=== PATIENT | female | born 1960 | race Caucasian/White ===

== ENCOUNTER → 2022-12-17 13:13 | Outpatient (CLI) | payer BC, SELFPAY ==
--- NOTE | ~2022-12-17 | MR_ITS ---
EXAMINATION: MR knee RT wo con DATE: 12/17/2022 14:07 INDICATION: Right knee pain TECHNIQUE: Magnetic resonance imaging (MRI) of the right knee was performed without intravenous contr ast. Sequences included coronal PD-weighted FSE, coronal PD-weighted FS FSE, sagittal T2-weighted FS E, sagittal PD-weighted FS FSE and axial PD weighted fat saturated FSE. COMPARISON: None. FINDINGS: Medial compartment: The proximal tear of the body and posterior horn of the medial meniscus. There is mild partial-thickn ess cartilage loss with scattered chondral surface regularity along the weightbearing medial femoral condyle with a couple small foci of subarticular cystlike changes at the medial rim of the anterior a nd posterior weightbearing medial femoral condyle. Partial-thickness chondral ulceration with mild un derlying subarticular edema-like signal change along the medial rim of the medial tibial plateau. Lateral compartment: Lateral meniscus is normal. Articular cartilage is normal. Patellofemoral compartment: Deep chondral fissuring at the medial patellar facet. Additional chondral ulceration and fissuring at the inferolateral aspect of the medial trochlea. Ligaments and tendons: Posterior cruciate ligament is normal. There are some lax appearing torn ligament tissue arising from the anterior tibial footplate of the anterior cruciate ligament consistent with likely partial tear. The more posterior portion of the tendon appears to remain intact. Mild thickening of the proximal m edial collateral ligament without surrounding edema consistent with likely sclerotic mild scarring re lated to chronic sprain. The fibular collateral ligament complex is normal. The extensor mechanism is normal. The visualized medial and lateral hamstring tendons as well as the iliotibial band are sean l. Fluid: Physiologic amount of fluid in the joint space. No loose osteochondral bodies identified. Very small Hurd's cyst. Osseous/other: Bone alignment is normal. No fracture or pathologic marrow replacing process. There is a 3.3 x 2.8 x 0.6 cm loculated T2 hyperintense prepatellar fluid collection consistent with bursitis. More caudally along the right anterior margin of the patellar tendon is a 4.2 x 2.1 x 3.5 cm subcutan eous lesion which is hyperintense on T1 and T1-weighted imaging and with decreased signal on the fat- saturated T2-weighted imaging. In the absence of intravenous contrast is unclear whether this is comp slava cystic or solid. IMPRESSION: 1. Partial tear of the anterior cruciate ligament. 2. Complex medial meniscal tear. 3. 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 4. Prepatellar bursitis with additional 4.2 x 2.1 x 3.5 cm subcutaneous lesion along the anterior and lateral margin of the patellar tendon, unclear whether solid or complex cystic. Consider further rashard luation with pre and postcontrast MRI with dedicated T1 and T1 fat saturated imaging. Definitive dete rmination may require biopsy. Reviewed, dictated and finalized at location A. IMPRESSION: 1. Partial tear of the anterior cruciate ligament. 2. Complex medial meniscal tear. 3. Mild osteoarthritis with small regions of high-grade chondromalacia in the m edial and patellofemoral compartments. 4. Prepatellar bursitis with additional 4.2 x 2.1 x 3.5 cm subcutaneous lesion along the anterior and lateral margin of the patellar tendon, unclear whether s olid or complex cystic. Consider further evaluation with pre and postcontrast M RI with dedicated T1 and T1 fat saturated imaging. Definitive determination may require biopsy.
== END ==
PROVIDERS: PCP Family Medicine; Visit Provider Specialist
DX: S83.511A Sprain of anterior cruciate ligament of right knee, initial encounter (principal); S83.231A Complex tear of medial meniscus, current injury, right knee, initial encounter; X58.XXXA Exposure to other specified factors, initial encounter; M17.11 Unilateral primary osteoarthritis, right knee; M70.41 Prepatellar bursitis, right knee
CPT/HCPCS: 73721

== ENCOUNTER 2023-11-19 15:33 | Outpatient (CLI) | payer MEDICARE, SELFPAY ==
--- NOTE | ~2023-11-19 | CT_ITS ---
CT abdomen pelvis wo con Ordering provider: Maya Ahn PA-C History: . R31.9 - Hematuria, unspecified . Comparison: None. Technique: CT abdomen without IV and without oral contrast. Findings: VISUALIZED LOWER CHEST: Normal. UPPER ABDOMINAL ORGANS: Liver: Fatty infiltration. Gallbladder: Normal. Spleen: Normal. Stomach/duodenum: Small sliding hiatus hernia. Pancreas: Normal. Adrenals: Normal. Kidneys: The left kidney pelvic stone measuring 8.3 mm. Urinary bladder: Normal. VISUALIZED BOWEL AND MESENTERY: Normal appendix. The bowel is otherwise normal. No free air or free f luid. No mesenteric lymphadenopathy. RETROPERITONEUM: Mild atheromatous disease of the abdominal aorta. No retroperitoneal lymphadenopathy . MUSCULOSKELETAL: The superficial soft tissues are normal. Age appropriate degenerative changes of the spine. IMPRESSION: Left renal pelvis stone with no significant hydronephrosis. Fat infiltration of the liver. Reviewed, dictated and finalized at location A.
== END 2023-11-19 15:34 ==
LOC: MICIMG 15:33
PROVIDERS: PCP Physician Assistant Medical; Visit Provider Physician Assistant Medical
DX: R31.9 Hematuria, unspecified (principal); K76.0 Fatty (change of) liver, not elsewhere classified; N20.0 Calculus of kidney
CPT/HCPCS: 74176

== ENCOUNTER 2023-12-26 14:15 | Outpatient (CLI) | payer MEDICARE, SELFPAY ==
--- NOTE | ~2023-12-26 | XR_ITS ---
Supine and upright views of the abdomen Clinical history: Kidney stones COMPARISON: 11/14/2023 Findings: Bowel gas pattern is nonspecific. No evidence for obstruction or free air. Possible tiny le ft lower pole renal stone. Osseous structures are intact. Impression: Possible tiny left lower pole renal stone. Reviewed, dictated and finalized at location . Impression: Possible tiny left lower pole renal stone.
--- NOTE | ~2023-12-26 | CT_ITS ---
EXAMINATION: CT abdomen pelvis wo con DATE: 12/26/2023 15:51 INDICATION: Blood in stool TECHNIQUE: Computed tomography (CT) of the abdomen and pelvis was performed without intravenous contr ast. Automated exposure control and iterative reconstruction technique were employed. The dose-length product was 290.72 mGy-cm. COMPARISON: 11/19/2023 FINDINGS: Visualized lower lungs are clear. Heart size is normal. No pericardial or pleural effusion. Diffuse h epatic steatosis. The gallbladder, spleen, pancreas, bilateral adrenal glands and right kidney are no rmal. The previously seen 8 mm stone at the left renal pelvis is no longer visualized. New 2-3 mm non obstructing stones or stone fragment at the lower pole of the left kidney. No ureteral stones or hydr onephrosis. Wall contrast material extensor the nonobstructed small bowel into the colon where it is mixed with stool in the proximal colon extending to the mid transverse colon. The more distal colon i s decompressed. There is mild stranding and hyperemia of the vasa recta at the splenic flexure of the colon extending distally along the descending colon which is new since the prior study and suspiciou s for a mild colitis. Bladder is normal. The uterus is not identified and has likely been surgically resected. No free intraperitoneal gas or fluid. No pathologically enlarged abdominal or pelvic lympha denopathy. Moderate to severe lumbar spondylosis. IMPRESSION: 1. Prior 8 mm stone at the left renal pelvis no longer visualized with new 2-3 mm stone or stone frag ment at the lower pole calyx suggesting interval lithotripsy. 2. Mild stranding and hyperemia to vasa recti at the splenic flexure and descending colon which is ne w since the prior study suspicious for mild colitis which could be infectious or inflammatory in etio logy. Reviewed, dictated and finalized at location A. IMPRESSION: 1. Prior 8 mm stone at the left renal pelvis no longer visualized with new 2-3 mm stone or stone fragment at the lower pole calyx suggesting interval lithotri psy. 2. Mild stranding and hyperemia to vasa recti at the splenic flexure and descen ding colon which is new since the prior study suspicious for mild colitis which could be infectious or inflammatory in etiology.
== END 2023-12-26 14:16 ==
LOC: MICIMG 14:17
PROVIDERS: PCP Physician Assistant Medical; Visit Provider Urology
DX: K92.1 Melena (principal)
CPT/HCPCS: 74018; 74176

== ENCOUNTER 2024-05-26 12:15 | Outpatient (CLI) | payer MEDICARE, SELFPAY ==
[2024-05-26 13:40] LABS: Basophils Percent Auto 0.5 % (0.2-1.2); Eosinophils Absolute Auto 0.1 K/mm3 (0-0.3); Eosinophils Percent Auto 1.8 % (0-4.4); Hematocrit 41.6 % (37.0-47.0); Hemoglobin 14.3 g/dL (12.0-15.0); Immature Granulocyte Absolute 0.02 K/mm3 (0.00-0.031); Immature Granulocyte Percent A 0.3 % (0-0.5); Lymphocytes Absolute Auto 1.91 K/mm3 (0.9-3.2); Lymphocytes Percent Auto 31.8 % (18.3-44.2); Mean Corpuscular HGB Conc 34.4 g/dl (32-36); Mean Corpuscular Hemoglobin 30.1 pg (26-34); Mean Corpuscular Volume 87.6 fl (80-100); Mean Platelet Volume 11.4 fl (7.4-10.4); Monocytes Absolute Auto 0.3 K/mm3 (0.1-0.6); Monocytes Percent Auto 5.5 % (2.6-8.5); Neutrophils Absolute Auto 3.6 K/mm3 (1.3-6.7); Neutrophils Percent Auto 60.1 % (45.5-73.1); Platelet Count Result 204 k/mm3 (150-375); Red Blood Count 4.75 M/mm3 (4.2-5.4); Red Cell Distribution Width 12.3 % (11.5-14.5)
[2024-05-26 13:58] LABS: Alanine Aminotransferase 37 U/L (6-35); Albumin Level 5.1 g/dL (3.5-5.1); Alkaline Phosphatase 65 U/L (38-126); Amylase 69 U/L (30-110); Anion Gap 9 mmol/L (4-12); Aspartate Amino Transferase 39 U/L (14-36); Bilirubin,Total 1.3 mg/dL (0.2-1.3); Blood Urea Nitrogen 13 mg/dL (7-17); Carbon Dioxide 26 mmol/L (22-30); Chloride 109 mmol/L (98-107); Estimated Glomerular Filt Rate > 60; Glucose 84 mg/dL (65-110); Lipase 72 U/L (23-300); Potassium 3.8 mmol/L (3.4-5.0); Sodium 144 mmol/L (137-145)
[2024-05-26 14:46] LABS: Iron 135 ug/dL (37-170)
[2024-05-26 14:56] LABS: Percent Iron Saturation 34 % (20-50)
== END 2024-05-26 12:16 | disposition home or self-care (01) ==
PROVIDERS: PCP Nurse Practitioner Family; Visit Provider Nurse Practitioner Family
DX: K92.1 Melena (principal)
CPT/HCPCS: 36415; 80048; 80076; 82150; 82728; 83540; 83550; 83690; 85025

== ENCOUNTER 2024-08-10 01:38 | Day surgery (SDC) | payer MEDICARE, SELFPAY ==
[2024-07-29 09:21] VITALS: BMI 24.0
[2024-08-10 12:43] VITALS: BP 155/83; PULSE 98; RESP 18; TEMP 36.3; O2SAT 99
[2024-08-10] MEDS: LACTATED RINGERS 1,000 ML 150 ML IV CONT (12:51)
--- NOTE | 2024-08-10 13:23 | WPDANESEPPF ---
Anes - Initial Pre Proc Eval Procedure: Operation Date: 08/10/24 14:00 Proposed Procedures p Colonoscopy - Francis Child MD Date/Time: 08/10/24 13:23 Surgeon: Francis Child MD Pre Op Diagnosis: Melena, Fam dx of neoplasm digestive organs Patient Data Age: 63 Gender: F Height: 1.5 m Weight: 54.1 kg Last Vital Signs Temp 36.3 C L 08/10/24 12:43 Pulse 98 08/10/24 12:43 Resp 18 08/10/24 12:43 BP 155/83 H 08/10/24 12:43 Pulse Ox 99 08/10/24 12:43 O2 Del Method Room Air 08/10/24 12:43 Allergies Allergy/AdvReac Type Severity Reaction Status Date / Time shellfish derived Allergy Severe Anaphylaxis Verified 08/10/24 12:42 Home Medications ?Medication ?Instructions ?Recorded ?Confirmed ?Type cetirizine 10 mg tablet (Zyrtec) See Rx Instructions PO DAILY PRN 04/05/22 08/10/24 History allergy symptoms cholecalciferol (vitamin D3) 50 50 mcg PO DAILY 04/05/22 08/10/24 History mcg (2,000 unit) capsule fish oil BYMOUTH 1400 mg 04/05/22 06/25/24 History folic acid 400 mcg tablet 0.4 mg PO DAILY 04/05/22 08/10/24 History aspirin 81 mg tablet,delayed 81 mg PO DAILY 02/14/23 08/10/24 History release (Adult Low Dose Aspirin) benazepril 20 mg tablet 20 mg PO DAILY 02/14/23 08/10/24 History cyanocobalamin (vitamin B-12) 1,000 mcg PO DAILY 02/15/23 08/10/24 History 1,000 mcg tablet amlodipine 5 mg tablet 5 mg PO DAILY 09/25/23 08/10/24 History simvastatin 20 mg tablet 20 mg PO QHS #90 tabs 05/18/24 08/10/24 Rx ezetimibe 10 mg tablet 10 mg PO DAILY #90 tabs 07/15/24 08/10/24 Rx montelukast 10 mg tablet 10 mg PO DAILY #90 tabs 07/15/24 08/10/24 Rx Patient hx anesthesia problems: none Family hx anesthesia problems: none Results Review: All pre-operative results and documents have been reviewed as part of the pre-operative evaluation. [facility] Past Medical History Medical History Fatty infiltration of liver (~12/2023) Mild transaminitis Spondylosis of lumbar spine Urolithiasis lithotripsy December 2023 Hematuria (~11/2023) Allergic rhinitis Dyslipidemia HTN (hypertension) Surgical History Surgical History History of knee surgery H/O mastoidectomy Social History Social History Smoking status: Never smoker Alcohol intake: current Alcohol use details: rarely Substance use: never Lack of Transportation: No Lack of Food: Never True Current Housing: I Have Housing Concerned About Future Housing: No Difficulty Paying Gas/Electric Bills: No Difficulty Paying for Meds: No Currently Unemployed: No Education: Trade/Vocational Certificate Difficulty w/ Childcare or Family Care: No Living arrangements: with family Occupation/Education: retired Gender identity (if verbalized by the patient): Female Anes - Eval Final PreProcedure Day of Procedure 08/10/24 13:23 Patient weight: normal Heart: regular rate and rhythm Lungs: clear to auscultation Airway: Mallampati scale class II Neurological: alert and oriented Last oral intake: >/= 8 hours ASA classification: II Emergent: no Anesthetic plan: proceed Anesthesia type and monitoring: general GIVS and standard monitoring Results Review: All pre-operative results and documents have been reviewed as part of the pre-operative evaluation. Informed Consent: The patient's anesthetic plan and its attendant risks and benefits were discussed with the patient/family/POA. Questions were solicited and answers provided to the satisfaction of the patient/family/POA.
--- NOTE | 2024-08-10 13:47 | PM.HPGS ---
History of Present Illness History of Present Illness Consent: Risks, benefits, and alternatives have been discussed and questions answered. Patient agrees to proceed with procedure. Chief complaint: Melena, Fam dx of neoplasm digestive organs Narrative: Arely De Paz is a 63 year old female with intermittent rectal bleeding, last colonoscopy 2019 Review of Systems Review of Systems: All systems reviewed & are unremarkable except as noted in HPI and below PMFSH Past Medical History Medical History Fatty infiltration of liver (~12/2023) Mild transaminitis Spondylosis of lumbar spine Urolithiasis lithotripsy December 2023 Hematuria (~11/2023) Allergic rhinitis Dyslipidemia HTN (hypertension) Surgical History Surgical History History of knee surgery H/O mastoidectomy Social History Social History Smoking status: Never smoker Alcohol intake: current Alcohol use details: rarely Substance use: never Lack of Transportation: No Lack of Food: Never True Current Housing: I Have Housing Concerned About Future Housing: No Difficulty Paying Gas/Electric Bills: No Difficulty Paying for Meds: No Currently Unemployed: No Education: Trade/Vocational Certificate Difficulty w/ Childcare or Family Care: No Living arrangements: with family Occupation/Education: retired Gender identity (if verbalized by the patient): Female Meds Home Medications and Allergies Home Medications ?Medication ?Instructions ?Recorded ?Confirmed ?Type cetirizine 10 mg tablet (Zyrtec) See Rx Instructions PO DAILY PRN 04/05/22 08/10/24 History allergy symptoms cholecalciferol (vitamin D3) 50 50 mcg PO DAILY 04/05/22 08/10/24 History mcg (2,000 unit) capsule fish oil BYMOUTH 1400 mg 04/05/22 06/25/24 History folic acid 400 mcg tablet 0.4 mg PO DAILY 04/05/22 08/10/24 History aspirin 81 mg tablet,delayed 81 mg PO DAILY 02/14/23 08/10/24 History release (Adult Low Dose Aspirin) benazepril 20 mg tablet 20 mg PO DAILY 02/14/23 08/10/24 History cyanocobalamin (vitamin B-12) 1,000 mcg PO DAILY 02/15/23 08/10/24 History 1,000 mcg tablet amlodipine 5 mg tablet 5 mg PO DAILY 09/25/23 08/10/24 History simvastatin 20 mg tablet 20 mg PO QHS #90 tabs 05/18/24 08/10/24 Rx ezetimibe 10 mg tablet 10 mg PO DAILY #90 tabs 07/15/24 08/10/24 Rx montelukast 10 mg tablet 10 mg PO DAILY #90 tabs 07/15/24 08/10/24 Rx Allergies Allergy/AdvReac Type Severity Reaction Status Date / Time shellfish derived Allergy Severe Anaphylaxis Verified 08/10/24 12:42 Vital Signs Vital Signs - 24 hr 08/10/24 12:43 Temperature 97.4 F L Pulse Rate 98 Respiratory Rate 18 Blood Pressure 155/83 H Pulse Oximetry 99 Oxygen Delivery Room Air Exam Const: General: comfortable and no acute distress HENMT: Face/Nose/Sinus: Normal nares present Eyes: General: appearance normal, both eyes and all related structures Neck: Neck: no JVD Resp: Auscultation: clear to auscultation bilaterally Cardio: Rate: regular rate Rhythm: regular rhythm GI: Inspection: non-distended GI Palp: Yes Soft to palpation Skin: General skin exam: normal color Neuro: Speech: normal speech Extrem: General: normal to inspection Psych: Mental Status: mental status grossly normal Assessment and Plan Assessment and plan (1) Hematochezia: Code(s): K92.1 - Melena Status: Acute Assessment and Plan: colonoscopy (2) Family history of colon cancer: Code(s): Z80.0 - Family history of malignant neoplasm of digestive organs Status: Acute
[2024-08-10 14:02] VITALS: BP 113/53; PULSE 92; RESP 20; O2SAT 98
[2024-08-10 14:12] VITALS: BP 98/77; PULSE 77; RESP 18; O2SAT 98
[2024-08-10 14:22] VITALS: BP 116/69; PULSE 77; RESP 19; O2SAT 98
== END 2024-08-10 14:32 | disposition home or self-care (01) ==
PROVIDERS: PCP Physician Assistant Medical; Referring Provider Nurse Practitioner Family; Visit Provider Internal Medicine Gastroenterology
PROC: 0DJD8ZZ Inspection of Lower Intestinal Tract, Via Natural or Artificial Opening Endoscopic (ICD-10-PCS; CPT 45378; principal; 2024-08-10 14:00)
DX: K92.1 Melena (principal); K64.8 Other hemorrhoids; Z80.0 Family history of malignant neoplasm of digestive organs
CPT/HCPCS: 45378; J2003; J2704; J7120

== ENCOUNTER 2025-01-05 10:00 | Outpatient (CLI) | payer MEDICARE, SELFPAY ==
--- NOTE | ~2025-01-05 | US_ITS ---
US retroperitoneal comp 01/05/2025 11:04 Procedure: Realtime transabdominal ultrasound of the kidneys and bladder. Indication: History of kidney stones Comparison: CT dated Findings: Renal echotexture is normal bilaterally without hydronephrosis, contour deforming mass. The re are echogenic foci in the lower pole of the left kidney, suspicious for renal stones. The right ki dney measures 11 cm and left kidney measures 10.7 cm. Bladder within normal limits. Impression: 1: Echogenic foci lower pole of the left kidney, suspicious for nonobstructing nephrolithiasis. Consi shiraz correlation with CT. Reviewed, dictated and finalized at location A. Impression: 1: Echogenic foci lower pole of the left kidney, suspicious for nonobstructing nephrolithiasis. Consider correlation with CT.
--- NOTE | ~2025-01-05 | XR_ITS ---
XR abdomen/kub 1V 01/05/2025 10:29 Indication: Kidney stone Procedure: KUB Comparison: 12/26/2023 Findings: Bowel gas pattern nonobstructive. No renal stones identified. Lung bases unremarkable. Ther e are pelvic phleboliths. Calcification overlying the right sacrum likely represents a phlebolith. Impression: 1: No acute abdominal abnormality. Reviewed, dictated and finalized at location A. Impression: 1: No acute abdominal abnormality.
== END 2025-01-05 10:01 | disposition home or self-care (01) ==
PROVIDERS: PCP Urology; Visit Provider Urology
DX: N20.0 Calculus of kidney (principal)
CPT/HCPCS: 74018; 76770

== ENCOUNTER 2025-03-25 14:00 | Outpatient (CLI) | payer MEDICARE, SELFPAY ==
--- OUTSIDE RECORDS SUMMARY | 2013-11-19 04:30 | XMS_ITS | Continuity of Care Document ---
Author Organization [employer] [facility] [place] Address [address] [facility] [address] [place] [address] Phone Care Team Providers Care Fuse Cutter Name Role Phone Danna OD OD, Ghanshyam Unavailable Unavailabl e Medications Medication Instructions Dosage Effective Dates (start - stop) Status Comments Zyrtec 10 mg tablet Take in the morning 4 - Active Accupril 40 mg tablet take 1 tablet (40MG) by oral route every day 40 MG - Active Zyrtec-D 5 mg-120 mg tablet,extended release QHS - Active Vytorin 10-20 10 mg-20 mg tablet take 1 tablet by oral route every day 1.00 tablet - Active Singulair 5 mg chewable tablet chew 2 tablet (10MG) by oral route every day in the evening 10 MG - Active ELESTAT 0.05 % Eye Drops instill 1 drop by ophthalmic route 2 times every day into both eyes - Active aspirin 81 mg tablet,delayed release take 1 tablet (81MG) by oral route every day 81 MG - Active Procedures Procedure Date Office/outpatient Visit, Est Special Eye Evaluation SCODI, Posterior Segment QuantifEye/Optomap Refraction Contact Lens Hydrophilic, Spherical Delivery Fee/S&H Eye Exam Established Pt Visual Field Examination(s) VEP Testing QuantifEye Office/outpatient Visit, Est SCODI, Posterior Segment Contact Lens Assessment QuantifEye/Optomap Refraction Office/outpatient Visit, Est Fundus Photography W/ Report Refraction QuantifEye Contact Lens Hydrophilic, Spherical Delivery Fee/S&H Contact Lens Assessment Contact Lens Hydrophilic, Spherical Delivery Fee/S&H Office/outpatient Visit, Est Fundus Photography W/ Report Contact Lens Assessment Contact Lens Hydrophilic, Spherical Delivery Fee/S&H QuantifEye Refraction Contact Lens Hydrophilic, Spherical Delivery Fee/S&H Eye Exam Established Pt Contact Lens Hydrophilic, Spherical Delivery Fee/S&H Contact Lens Check Office/outpatient Visit, Est Refraction Visual Field Examination(s) Fundus Photography W/ Report Contact Lens Assessment Eye Exam & Treatment Contact Lens Hydrophilic, Spherical Delivery Fee/S&H Office/outpatient Visit, Est Visual Field Examination(s) CL Replacement - [employer] Frq Rep Sph Ju Delivery Fee CL Replacement - [employer] Frq Rep Sph No v Delivery Fee No Charge Contact Lens Check Eye Exam Established Pt Contact Lens Fitting Office/outpatient Visit, Est QuantifEye/Optomap Post-op Follow-up Visit Post-op Follow-up Visit CK Enhancement Oct- Office/outpatient Visit, Est Office/outpatient Visit, Est Office/outpatient Visit, Est Office/outpatient Visit, Est Advance Directives Directive Yes / No Effective Date File Name Resuscitation Not Answered N/A N/A Life Support Not Answered N/A N/A Intubation Not Answered N/A N/A Antibiotics Not Answered N/A N/A IV Fluid Support Not Answered N/A N/A Tube Feed Not Answered N/A N/A Other Directive N/A N/A WARNING:The information contained in this section is historical and is provided for information only and does not constitute a legal document or any assurance that the information is still accurate. Please verify the information with the weber of the legal document before using it for clinical purposes. Encounters Encounter Description Practice Location Reason(s) For Visit Diagnoses Date Provider Providers Copied on Encounter Office[facility]pat ient [facility] [employer] [facility], [address], [place], [place], [address], [place] tel:[phone] [facility] CUPPING OF OPTIC DISCOPN ANGL W BORDERLN FIND Low Risk Karl- 2-201 4 Mulqueeny OD Ghanshyam. [address], [place], [address], [place]. tel:[phone] Referring Provider: Ghanshyam Clay OD P, [address] [place], [address]. tel:[phone] [facility], [address], [place], [place], [address], [place] tel:[phone] SEC [facility] Ball No Information 8-201 3 Mulqueeny OD Ghanshyam. [address], [place], [address], [place]. tel:[phone] Referring Provider: Ghanshyam Clay OD P, [address] [place], [address]. tel:[phone] ing Provider: Luther Low, [address] [facility], [place], [address]. [facility], [address], [place], [place], [address], [place] tel:[phone] [facility] No Information Jan-2 3-201 3 Mulqueeny OD Ghanshyam. [address] [facility], [place], [place], [address], [place]. tel:[phone] Referring Provider: Ghanshyam Clay OD P, [address] [facility], [place], [address]. tel:[phone] Office/outpat ient Visit, [facility], [address], [place], [place], [address], [place] tel:[phone] [facility] No Information Nov-1 - 3 Mulqueeny OD Ghanshyam. [address] [facility], [place], [address], [place]. tel:[phone] Referring Provider: Ghanshyam Clay OD P, [address] [facility], [place], [address]. tel:[phone] Office/outpat ient Visit, [facility] [place], [address], [place], [place], [address], [place] tel:[phone] [facility] No Information Nov-0 5- 2 Mulqueeny OD Ghanshyam. [address] [facility], [place], [place], [address], [place]. tel:[phone] Referring Provider: Ghanshyam Clay OD P, [address] [facility], [place], [address]. tel:[phone] [facility], [address], [place], [place], [address], [place] tel:[phone] [facility] No Information Apr-0 3-201 1 Mulqueeny OD Ghanshyam. [address] [facility], [place], [place], [address], [place]. tel:[phone] Referring Provider: Ghanshyam Clay OD P, [address] [facility], [place], [address]. tel:[phone] ing Provider: Ridge Holland, [address] [facility], [place], [address]. tel:[phone] Office/outpat ient Visit, Est [facility], [address] [place] [address] [address], [place], [place], [address], [place] tel:[phone] [facility] No Information Karl-0 6-201 1 Mulqueeny OD Ghanshyam. [address] [facility], [place], [place], [address], [place]. tel:[phone] Referring Provider: Ghanshyam Clay OD P, [address] [facility], [place], [address]. tel:[phone] [facility], [address] [facility], [place], [place], [address], [place] tel:[phone] [facility] Ball No Information Gerry-0 7-201 1 Mulqueeny OD Ghanshyam. [address] [facility], [place], [place], [address], [place]. tel:[phone] Referring Provider: Ghanshyam Clay OD P, [address] [facility], [place], [address]. tel:[phone] ing Provider: Ridge Holland, [address] [facility], [place], [address]. tel:[phone] [facility], [address], [place], [place], [address], [place] tel:[phone] [facility] Ball No Information Dec-0 7-201 0 Mulqueeny OD Ghanshyam. [address] [facility], [place], [place], [address], [place]. tel:[phone] Referring Provider: Ghanshyam Clay OD P, [address] [facility], [place], [address]. tel:[phone] [facility], [address], [place], [place], [address], [place] tel:[phone] [facility] No Information Aug-0 4-201 0 Mulqueeny OD Ghanshyam. [address] [facility], [place], [place], [address], [place]. tel:[phone] Referring Provider: Ghanshyam Clay OD P, [address] [facility], [place], [address]. tel:[phone] ing Provider: Ridge Holland, [address] [facility], [place], [address]. tel:[phone] [facility], [address], [place], [place], [address], [place] tel:[phone] [facility] No Information Mil-1 5-201 0 Mulqueeny OD Ghanshyam. [address], [place], [address], [place]. tel:[phone] Referring Provider: Ghanshyam Clay OD P, [address] [facility], [place], [address]. tel:[phone] Office/outpat ient Visit, Est [facility], [address], [place], [place], [address], [place] tel:[phone] [facility] No Information Karl-0 8-201 0 Mulqueeny OD Ghanshyam. [address] [facility], [place], [place], [address], [place]. tel:[phone] Referring Provider: Ghanshyam Clay OD P, [address] [place], [address]. tel:[phone] [facility], [address], [place], [place], [address], [place] tel:[phone] [facility] Ball No Information Mar-1 5-201 0 Mulqueeny OD Ghanshyam. [address] [facility] [place], [address], [place]. tel:[phone] Referring Provider: Ghanshyam Luzbrittney OD P, [address] [facility] [place], [address]. tel:[phone] [facility], [address], [place], [place], [address], [place] tel:[phone] [facility] Ball No Information Nov-1 7-200 9 Mulqueeny OD Ghanshyam. [address], [place], [address], [place]. tel:[phone] Office/outpat ient Visit, Est [facility], [address], [place], [place], [address], [place] tel:[phone] [facility] Ball No Information Karl-0 2-200 9 Mulqueeny OD Ghanshyam. [address], [place], [address], [place]. tel:[phone] Referring Provider: Ghanshyam Luzbrittney OD P, [address] [facility] [place], [address]. tel:[phone] [facility], [address], [place], [place], [address], [place] tel:[phone] [facility] Ball No Information Nov-2 4-200 8 Mulqueeny OD Ghanshyam. [address], [place], [address], [place]. tel:[phone] [facility], [address], [place], [place], [address], [place] tel:[phone] [facility] No Information Nov-0 6-200 8 Mulqueeny OD Ghanshyam. [address] [facility], [place], [address], [place]. tel:[phone] Referring Provider: Ghanshyam Clay OD P, [address] [facility], [place], [address]. tel:[phone] [facility], [address], [place], [place], [address], [place] tel:[phone] [facility] No Information Oct-2 0-200 8 Mulqueeny OD Ghanshyam. [address] [facility], [place], [place], [address], [place]. tel:[phone] Referring Provider: Ghanshyam Clay OD P, [address] [facility], [place], [address]. tel:[phone] Office/outpat ient Visit, Est [facility], [address], [place], [place], [address], [place] tel:[phone] [facility] No Information May-2 9-200 8 Mulqueeny OD Ghanshyam. [address] [facility], [place], [place], [address], [place]. tel:[phone] Referring Provider: Ghanshyam Clay OD P, [address] [facility], [place], [address]. tel:[phone] [facility], [address], [place], [place], [address], [place] tel:[phone] [facility] No Information Nov-2 7-200 7 Mulqueeny OD Ghanshyam. [address] [facility], [place], [address], [place]. tel:[phone] Referring Provider: Ghanshyam Clay OD P, [address] [facility], [place], [address]. tel:[phone] [facility], [address], [place], [place], [address], [place] tel:[phone] [facility] No Information Oct-1 6-200 7 Mulqueeny OD Ghanshyam. [address] [facility], [place], [place], [address], [place]. tel:[phone] Referring Provider: Ghanshyam Clay OD P, [address] [facility], [place], [address]. tel:[phone] [facility], [address] [facility] [address], [place], [place], [address], [place] tel:[phone] [facility] No Information Oct-1 0-200 7 [facility] [address] [place], [place], [address], . tel:[phone] Referring Provider: Ghanshyam Clay OD P, [address] [facility], [place], [address]. tel:[phone] [facility]pat [facility], [address], [place], [place], [address], [place] tel:[phone] [facility] No Information Sep-1 7-200 7 Mulqueeny OD Ghanshyam. [address], [place], [address], [place]. tel:[phone] Referring Provider: Ghanshyam Clay OD P, [address] [facility], [place], [address]. tel:[phone] Office/outpat ient Visit, Est [facility], [address], [place], [place], [address], [place] tel:[phone] [facility] Ball No Information 6200 7 Mulqueeny OD Ghanshyam. [address], [place], [address], [place]. tel:[phone] Office/outpat ient Visit, [facility], [address] [place] [address] [address], [place], [place], [address], [place] tel:[phone] [facility] No Information 0200 7 Mulqueeny OD Ghanshyam. [address], [place], [address], [place]. tel:[phone] Office/outpat ient Visit, [facility], [address], [place], [place], [address], [place] tel:[phone] [facility] No Information 2200 7 Mulqueeny OD Ghanshyam. [address], [place], [address], [place]. tel:[phone] Family History Family Member Type Diagnosis Age At Onset No Information Payers Payer name Insurance type Covered alliance party ID Authoriza timarian(s) [place] [id number] Social History Type Description Quantity Date Captured Comments Alcohol Use Details No Caffeine Use Details No Tobacco Use Status No Information Smoking Status Never smoker Sex Female Chief Complaint And Reason For Visit No Information Reason For Referral Reason For Referral No Information History Of Present Illness Encounter Date Complaint History Of Prese nt Illness No Information Functional Status Date Functional Assessmen t No Information Instructions Date Instruction Additional Infor aleksandr - Return in 1 year arie Clay O.D. for Complete Exam / Contacts. Related to Borderline OAG Pathological optic-d isc cupping Borderline OAG - pleased to find stable results OUpt will call if allergy symptoms worsenrx given for specspt did not wish to renew ctl rx today, pt will call when ready for ctl assessment Related to Borderline OAG Assessments Type Assessment Date assessment CUPPING OF OPTIC DISC 4 assessment OPN GHAZALA FIELD FIND Low Ris k Patient Care Teams Name Effective Dates (start - stop) Status Members No Information
--- OUTSIDE RECORDS SUMMARY | 2025-03-25 16:07 | XMS_ITS | Encounter Summary ---
Author Organization [facility] Address [address] [place] [address] Care Team Providers Care [employer] Name Role Phone Deonte Glez MD Primary Care Provider [phone] Encounter Details Date Type Department Care Team (Late st Contact Info) Description 11/14/2019 Lab Requisition [facility] [address] [place] [address] Social History Tobacco Use Types Packs/Day Years Used Date Smoking Tobacco: Never Smokeless Tobacco: Never Alcohol Use Standard Drinks/Week Comments Yes 0 (1 standard drink = 0.6 oz pur e alcohol) Comments Unknown Sex and Gender Information Value Date Recorded Sex Assigned at Female 12/18/2022 9:34 AM CDT 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 Gender Identity Female 12/18/2022 9:34 AM CDT Sexual Orientation Straight 12/18/2022 9: 34 AM CDT documented as of this encounter Plan of Treatment Not on file documented as of this encounter Procedures Procedure Name Priority Date/Time Associated Diagnosis Comments SARS-COV-2 (COVID-19) IN HOUSE Routine 11/13/2019 4:20 PM CDT documented in this encounter Results * SARS-COV-2 (COVID-19) IN HOUSE (11/13/2019 4:20 PM CDT) COVID-19 PCR Not detected Not detected, Invalid 11/14/2019 10:22 PM CDT [facility] Microbiology SPECIMEN FROM NASOPHARYNGEAL STRUCTURE / Unknown Collection / Unknown 11/13/2019 4:20 PM CDT 11/14/2019 11:17 AM CDT Narrative [facility] - 11/14/2019 10:22 PM CDT This Real Time RT-PCR assay was developed and its performance characteristics determined by [facility]. This test has been authorized by the Food and Drug administration (FDA)under an Emergency Use Authorization (EUA). This test has been validated in accordance with the FDA's guidance document Policy for Diagnostic Testing in Laboratories Certified to perform High Complexity Testing under CLIA prior to Emergency Use Authorization for Coronavirus Disease-2019 during the Public Health Emergency issued on August 08, 2019. FDA independent review of this validation is pending. This test is only authorized for the duration of time the declaration that circumstances exist justifying the authorization of emergency use of in vitro diagnostic tests for detection of SARS-CoV-2 virus and/or diagnosis of COVID-19 infection under section 564(b)(1) of the Act, 21 U.S.C 360bbb-3 (b)(1), unless the authorization is terminated or revoked sooner. us LAB - MICROBIOLOGY ORDERABLES Fi nal Result [facility] [address] [place], [place] [address], [facility] [phone] documented in this encounter Visit Diagnoses Not on filedocumented in this encounter Additional Health Concerns Infection Onset Date Last Indicated Resolved Time COVID-19 Under Investigation 11/14/2019 11/13/2019 11/14/2019 10:22 PM CDT documented as of this encounter Care Teams [employer] Relationship Specialty Start Date End Date Deonte Glez MD [address] [place] [id number] PCP - General 04/17/18 documented as of this encounter
--- OUTSIDE RECORDS SUMMARY | 2025-03-25 16:07 | XMS_ITS | Encounter Summary ---
Author Organization [facility] Address [address] [address] Care Team Providers Care Retort Unloader Name Role Phone Deonte Glez MD Primary Care Provider [phone] Encounter Details Date Type Department Care Team (Late st Contact Info) Description 11/13/2022 Lab Requisition [facility] [address] [facility] [facility] [place] [address] Roseline Warren DO [address] [facility] [address] [place] [address] Social History Tobacco Use Types Packs/Day Years Used Date Smoking Tobacco: Never Smokeless Tobacco: Never Alcohol Use Standard Drinks/Week Comments Yes 0 (1 standard drink = 0.6 oz pur e alcohol) Comments Unknown Sex and Gender Information Value Date Recorded Sex Assigned at Female 12/18/2022 9:34 AM CDT 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 Gender Identity Female 12/18/2022 9:34 AM CDT Sexual Orientation Straight 12/18/2022 9: 34 AM CDT documented as of this encounter Plan of Treatment Not on file documented as of this encounter Procedures Procedure Name Priority Date/Time Associated Diagnosis Comments DERMATOPATHOLOGY Routine 11/13/2022 2:19 PM CDT documented in this encounter Results * DERMATOPATHOLOGY (11/13/2022 2:19 PM CDT) Case Report Dermatopathology Report Case: [id number] Authorizing Provider: Roseline Warren DO Collected: 11/13/2022 02:19 PM Ordering Location: [facility] Derm[facility] Lab Received: 11/14/2022 01:04 PM Pathologist: Lencho Doan MD Specimen: Skin, left thigh 3 5:55 PM CDT DERMATOPATHOLOGY LABORATORY Final Diagnosis Specimen A. SKIN, left thigh: HYPERPLASTIC (HYPERTROPHIC) ACTINIC KERATOSIS WITH ASSOCIATED HUMAN PAPILLOMA VIRUS CHANGES (L57.0) 3 5:55 PM CDT DERMATOPATHOLOGY LABORATORY at 1755 CDT Clinical History R/O NMSC 3 5:55 PM CDT DERMATOPATHOLOGY LABORATORY Gross Description Specimen A: Received is one formalin filled container labeled with the patient's name and designated left thigh. The specimen consists of a shave biopsy measuring 6x7x1 mm. Jar 0. 3 5:55 PM CDT DERMATOPATHOLOGY LABORATORY Microscopic Description Specimen A. SKIN, left thigh: There is hyperkeratosis alternating with parakeratosis. There is epidermal hyperplasia with disorderly maturation of keratinocytes with nuclear pleomorphism confined to the lower half of the epidermis. 3 5:55 PM CDT DERMATOPATHOLOGY LABORATORY Disclaimer An external and internal positive and negative controls are appropriate for the histochemical, immunohistochemical and immunofluorescence stain(s) in this case (if any), except where stated explicitly. The performance characteristics of the stain(s) cited in this report were developed and its performance characteristic determined by the Dermatopathology Laboratory at [facility], directed by Dr. Aureliano Doan. These tests need not be, and therefore are not, approved by the [place] Food and Drug Administration. The tests are used for clinical purposes. Billing Codes Specimen Charges Stain Charges 16213 1 3 5:55 PM CDT DERMATOPATHOLOGY LABORATORY Embedded Images 3 5:55 PM CDT DERMATOPATHOLOGY LABORATORY Pathology/Cytolo gy TISSUE SPECIMEN FROM SKIN / Unknown 11/13/2022 2:19 PM CDT 11/14/2022 1:04 PM CDT us Roseline Warren DO LAB - PATHOLOGY/CYTOLOGY ORDERABLES Final Result DERMATOPATHOLOGY LABORATORY [facility] - Department of Dermatology [facility] Special[facility] Medicine [address] [place] [address], [address] [phone] documented in this encounter Visit Diagnoses Not on filedocumented in this encounter Care Teams Retort Unloader Relationship Specialty Start Date End Date Deonte Glez MD [address] [place] [id number] PCP - General 04/17/18 documented as of this encounter
--- OUTSIDE RECORDS SUMMARY | 2025-03-25 16:07 | XMS_ITS | Encounter Summary ---
Author Organization [facility] Address [address] [facility] [place] [address] Care Team Providers Care Player Manager Name Role Phone Deonte Glez MD Primary Care Provider [phone] Encounter Details Date Type Department Care Team (Late st Contact Info) Description 02/20/2024 Lab Requisition [facility] [address] [facility] [place] [address] Roseline Warren DO [address] [facility] [address] [place] [address] Social History Tobacco Use Types Packs/Day Years Used Date Smoking Tobacco: Never Smokeless Tobacco: Never Alcohol Use Standard Drinks/Week Comments Yes 0 (1 standard drink = 0.6 oz pur e alcohol) Comments Unknown Sex and Gender Information Value Date Recorded Sex Assigned at Female 12/18/2022 9:34 AM CDT 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 Gender Identity Female 12/18/2022 9:34 AM CDT Sexual Orientation Straight 12/18/2022 9: 34 AM CDT documented as of this encounter Plan of Treatment Not on file documented as of this encounter Procedures Procedure Name Priority Date/Time Associated Diagnosis Comments DERMATOPATHOLOGY Routine 02/20/2024 3:20 PM CDT documented in this encounter Results * DERMATOPATHOLOGY (02/20/2024 3:20 PM CDT) Case Report Dermatopathology Report Case: [id number] Authorizing Provider: Roseline Warren DO Collected: 02/20/2024 03:20 PM Ordering Location: [facility] - Received: 02/21/2024 04:31 PM DermPath Lab Pathologist: Elise Irby MD Specimens: A) - Skin, right medial calf sup B) - Skin, right medial calf inf C) - Skin, right ant LE 4:00 PM T DERMATOPATHOLOGY LABORATORY Final Diagnosis Specimen A. 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 SKIN, right medial calf inf: ACTINIC KERATOSIS, LICHENOID (L57.0) Specimen C. SKIN, right ant LE: SQUAMOUS CELL CARCINOMA, WELL DIFFERENTIATED (C44.722) 4:00 PM T DERMATOPATHOLOGY LABORATORY at 1600 CDT Clinical History A-C: R/O NMSC 4:00 PM T DERMATOPATHOLOGY LABORATORY Gross Description Specimen A: Received is one formalin filled container labeled with the patient's name and designated right medial calf sup. The specimen consists of a shave biopsy measuring 6x4x1 mm. Jar 0. Specimen B: Received is one formalin filled container labeled with the patient's name and designated right medial calf inf. The specimen consists of a shave biopsy measuring 6x5x1 mm. Jar 0. Specimen C: Received is one formalin filled container labeled with the patient's name and designated right ant LE. The specimen consists of a shave biopsy measuring 9x7x2 mm. Jar 0. 4:00 PM CDT DERMATOPATHOLOGY LABORATORY Microscopic Description Specimen A. SKIN, right medial calf sup: The epidermis shows parakeratosis, full thickness disorderly maturation of keratinocytes, mitoses at different levels, and dyskeratotic cells. There is a lymphohistiocytic infiltrate within the dermis. Additional deeper sections were obtained and reviewed. Specimen B. SKIN, right medial calf inf: There is focal parakeratosis. The lower half of the epidermis shows disorderly maturation of keratinocytes with nuclear pleomorphism. The dermis shows a band-like, chronic inflammatory infiltrate with occasional apoptotic keratinocytes and some basal vacuolar alteration. Specimen C. SKIN, right ant LE: Arising in the epidermis and extending into the dermis there are irregularly shaped aggregates of keratinocytes showing evidence of premature cornification. 4 4:00 PM CDT DERMATOPATHOLOGY LABORATORY Disclaimer An external and internal positive and negative controls are appropriate for the histochemical, immunohistochemical and immunofluorescence stain(s) in this case (if any), except where stated explicitly. The performance characteristics of the stain(s) cited in this report were developed and its performance characteristic determined by the Dermatopathology Laboratory at [facility], directed by Dr. Aureliano Doan. These tests need not be, and therefore are not, approved by the [place] Food and Drug Administration. The tests are used for clinical purposes. Billing Codes Specimen Charges Stain Charges 72063 02644 54841 1 1 1 4 4:00 PM CDT DERMATOPATHOLOGY LABORATORY Embedded Images 4 4:00 PM CDT DERMATOPATHOLOGY LABORATORY Pathology/Cytology TISSUE SPECIMEN FROM SKIN / Unknown 02/20/2024 3:20 PM CDT 02/21/2024 4:31 PM CDT Miscellaneous samples (specimen) TISSUE SPECIMEN FROM SKIN / Unknown 02/20/2024 3:20 PM CDT 02/21/2024 4:31 PM CDT Miscellaneous samples (specimen) TISSUE SPECIMEN FROM SKIN / Unknown 02/20/2024 3:20 PM CDT 02/21/2024 4:31 PM CDT us Roseline Warren DO LAB - PATHOLOGY/CYTOLOGY ORDERABLES Final Result DERMATOPATHOLOGY LABORATORY [facility] Department of Dermatology [facility] Medicine [address] [place] [address], [address] [phone] documented in this encounter Visit Diagnoses Not on filedocumented in this encounter Care Teams Player Manager Relationship Specialty Start Date End Date Deonte Glez MD [address] [place] [address] [place] [id number] PCP - General 04/17/18 documented as of this encounter
--- OUTSIDE RECORDS SUMMARY | 2025-03-25 16:07 | XMS_ITS | Clinical Summary ---
Author Organization [facility] Address [address] [place] [address] Care Team Providers Care Mechanical Commissioning Engineer Name Role Phone Deonte Glez MD Primary Care Provider [phone] Referral, Self Unavailable Unavailable Allergies Active Allergy Reactions Criticality Noted Date Comments Shellfish Containing Products Swelling Medium 2019 Medications quinapriL (ACCUPRIL) 10 mg tablet Take 10 mg by mouth daily 0 Active ezetimibe (ZETIA) 10 mg tablet Take 10 mg by mouth daily 0 Active simvastatin (ZOCOR) 20 mg tablet Take 20 mg by mouth nightly at bedtime. 0 Active montelukast (Singulair) 10 mg tablet Take 5 mg by mouth daily Active ciprofloxacin-d exAMETHasone (CIPRODEX) otic suspension Administer 4 drops into the left ear 2 (two) times a day 7.5 mL 0 Active ciprofloxacin-d exAMETHasone (CIPRODEX) otic suspension Administer 4 drops into the right ear 4 (four) times a day 7.5 mL 3 0 Active HYDROcodone-warner taminophen ([place]) 5-325 mg per tabletIndicatio ns:Pain Take 1 tablet by mouth every 6 (six) hours as needed for pain 15 tablet 0 Active estradioL (CLIMARA) 0.025 mg/24 hr AGNES 1 PA EXT TO THE SKIN 1 TIME WEEKLY 0 Active Active Problems Problem Noted Date Diagnosed Date Cervicalgia 11/21/2021 Sensation of fullness in ear 06/22/2020 Otorrhea of left ear 11/13/2019 Abscess of ear canal, left 11/05/2019 Surgical History Surgery Date Site/Laterality Comments SKIN CANCER EXCISION EAR SURGERY Medical History Medical History Date Comments Hypertension Seasonal allergies Social History Tobacco Use Types Packs/Day Years Used Date Smoking Tobacco: Never Assessed Comments Unknown Sex and Gender Information Value Date Recorded Sex Assigned at Not on file Legal Sex Female 3:36 PM CDT Gender Identity Female 11/12/2019 10:19 PM CDT Sexual Orientation Not on file Obstetrics History Last Filed Vital Signs Vital Sign Reading Time Taken Comments Blood Pressure - - Pulse - - Temperature - - Respiratory Rate - - Oxygen Saturation - - Inhaled Oxygen Concentration - - Weight 54.4 kg (120 lb) 11/21/2021 1:53 PM CDT Height - - Body Mass Index - - Plan of Treatment Not on file Insurance CHOICE [place] Care Teams Mechanical Commissioning Engineer Relationship Specialty Start Date End Date Deonte Glez MD [address] [place] [address] [phone] PCP - General Internal Medicine 11/03/19 Referral, Self Referring Physician Otolaryngology 12/16/19
--- OUTSIDE RECORDS SUMMARY | 2025-03-25 16:07 | XMS_ITS | Clinical Summary ---
Author Organization [facility] Address [address] [place] [address] Care Team Providers Care Bull Ladle Tender Name Role Phone Abdi Mcnally MD Unavailable [phone] Yris Desai PA-C Primary Care Provider [phone] Allergies Active Allergy Reactions Criticality Noted Date Comments Shellfish-Derived Products Throat swelling 04/11 Medications aspirin EC (ASPIRIN EC) 81 MG tablet Take 1 tablet (81 mg total) by mouth daily. Active folic acid 1 MG tablet Take 1 tablet (1 mg total) by mouth daily. Active cetirizine 10 MG tablet Take 0.5 tablets (5 mg total) by mouth nightly. Active fish oil 1000 MG Cap capsule Take 1,400 mg by mouth daily. Active Cholecalciferol (VITAMIN D3) 50 MCG (2000 UT) Tab Take by mouth daily. Active ezetimibe 10 MG tablet Take 1 tablet (10 mg total) by mouth nightly. Active simvastatin 20 MG tablet Take 1 tablet (20 mg total) by mouth nightly at bedtime. Active montelukast 5 MG chewable tablet Chew 1 tablet (5 mg total) by mouth nightly at bedtime. Active Cetirizine-Pseu doephedrine (ZYRTEC-D OR) Take 1 tablet by mouth daily. Active amLODIPine (NORVASC) 5 MG tablet Take 1 tablet (5 mg total) by mouth daily. 05/21/2023 Active benazepril (LOTENSIN) 20 MG tablet Take 1 tablet (20 mg total) by mouth daily. 04/29/2023 Active tamsulosin (FLOMAX) 0.4 MG Cap Take 1 capsule (0.4 mg total) by mouth nightly at bedtime. 30 capsule 12/17/2023 Active HYDROcodone-warner taminophen (NORCO) 5-325 MG tabletIndicatio ns:Acute Pain < 7 Day Supply Take 1 tablet by mouth every 6 (six) hours as needed. Indications: Acute Pain < 7 Day Supply 15 tablet 12/17/2023 Active Active Problems No known active problems Family History Medical History Relation Comments Breast Cancer Neg Hx Social History Tobacco Use Types Packs/Day Years Used Date Smoking Tobacco: Never Smokeless Tobacco: Never Alcohol Use Standard Drinks/Week Comments Never 0 (1 standard drink = 0.6 oz pur e alcohol) Humiliation, Afraid, Rape, and Kick questionnair e Answer Date Recorded Within the last year, have y ou been afraid of your partner or ex-partner? Patient declined 05/03/2020 Within the last year, have y ou been humiliated or emotionally abused in other ways by your partner or ex-partner? Patient declined 05/03/2020 Within the last year, have y ou been kicked, hit, slapped, or otherwise physically hurt by your partner or ex-partner? Patient declined 05/03/2020 Within the last year, have y ou been raped or forced to have any kind of sexual activity by your partner or ex-partner? Patient declined 05/03/2020 Social Connection and Isolation Panel Answer Date Recorded In a typical week, how many times do you talk on the phone with family, friends, or neighbors? Patient declined 05/03/2020 How often do you get togethe r with friends or relatives? Patient declined 05/03/2020 How often do you attend advent or lutheran serv ices? Patient declined 05/03/2020 Do you belong to any clubs o r organizations such as advent groups, unions, fraternal or athletic groups, or school groups? Patient declined 05/03/2020 How often do you attend meet ings of the clubs or organizations you belong to? Patient declined 05/03/2020 Are you , , di vorced, , never , or living with a partner? Patient declined 05/03/2020 AUDIT-C Answer Date Recorded Q1: How often do you have a drink containing alc ohol? Never 05/03/2020 Average Number of Drinks Not on file 020 Frequency of Binge Drinking Not on file 04/11 Overall Financial Resource Strain (CARDIA) Answe r Date Recorded How hard is it for you to pa y for the very basics like food, housing, medical care, and heating? Not hard at all 05/03/2020 [facility] - Occupational Stress Questionnaire Answer Date Recorded Do you feel stress - tense, restless, nervous, or anxious, or unable to sleep at night because your mind is troubled all the time - these days? Not at all 05/03/2020 Exercise Vital Sign Answer Date Recorde d On average, how many days pe r week do you engage in moderate to strenuous exercise (like a brisk walk)? 7 days 05/03/2020 On average, how many minutes do you engage in exercise at this level? 90 min 05/03/2020 Hunger Vital Sign Answer Date Recorded Within the past 12 months, y ou worried that your food would run out before you got the money to buy more. Never true 05/03/20 20 Within the past 12 months, t he food you bought just didn't last and you didn't have money to get more. Never true 05/03/2020 PRAPARE - Transportation Answer Date Re corded In the past 12 months, has l ack of transportation kept you from medical appointments or from getting medications? No 04/11 In the past 12 months, has l ack of transportation kept you from meetings, work, or from getting things needed for daily living? 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 TEACHER Sexual Orientation Straight 07/19/2021 10 :03 AM HIGH SCHOOL BAND TEACHER Last Filed Vital Signs Vital Sign Reading Time Taken Comments Blood Pressure 122/72 12/17/2023 9:50 AM CDT Pulse 70 12/17/2023 9:50 AM CDT Temperature 36.1 C (97 F) 12/17/2023 9:50 AM CDT Respiratory Rate 16 12/17/2023 9:50 AM CDT Oxygen Saturation 100% 12/17/2023 9:50 AM CDT Inhaled Oxygen Concentration - - Weight 50.8 kg (111 lb 15.9 oz) 12/17/2023 6:15 AM CDT Height 151.1 cm (4' 11.5) 12/17/2023 6:15 AM CD T Body Mass Index 22.24 12/17/2023 6:15 AM CDT Plan of Treatment Health Maintenance Due Date Last Done Comments Hepatitis C 1976 DTaP, Tdap and Td Vaccines (1 - Tdap) 1977 Pneumococcal Vaccine: 50+ Years (1 of 1 - PCV) 2008 Annual Medicare Wellness Visit 11/09/2023 PHQ-2 (Physician [place]) 06/10/2024 COVID-19 Vaccine ( season) 2025 05/16/2021, 09/27/2020, 09/08/2020 Influenza Adult (#1) 2025 03/25/2020, 05/11/2019, 05/09/2018, Additional history exists Mammogram Screening 10/13/2026 10/13/2024, 07/29/2023, 07/25/2022, Additional history exists Colorectal Cancer Screening Colonoscopy (10 Years) 05/13/2030 05/13/2020 RSV Immunization or 60+ Years (1 - 1-dose 75+ series) 2033 Zoster Vaccines Completed 11/21/2017, 09/06/2017 Dexa Scan (General) Completed 07/29/2023 Meningococcal B Vaccine Aged Out No l onger eligible based on patient's age to complete this topic Meningococcal Vaccine Aged Out No marcia shagufta eligible based on patient's age to complete this topic RSV Immunizations Under 20 Months Aged Out No longer eligible based on patient's age to complete this topic Procedures Procedure Name Priority Date/Time Associated Diagnosis Comments MG SCREENING W VICKI ADINA DIGI Routine 10/13/2024 10:01 AM CDT Encounter for screening mammogram for malignant neoplasm of breast BONE DENSITY/DEXA Routine 07/29/2023 9:0 6 AM HIGH SCHOOL BAND TEACHER Post-menopausal from Last 3 Months or Most Recently Relevant to Health Maintenance Results * MG SCREENING W VICKI ADINA DIGI (10/13/2024 10:01 AM CDT) Anatomical Region Laterality Modality Breast Bilateral Mammography 10/13/2024 1:30 PM CDT Impressions 10/13/2024 1:48 PM CDT ===== IMPRESSION: ===== 1. Stable mammographic appearance with no new findings to suggest malignancy in either breast. Assessment: ACR BI-RADS 1 - NEGATIVE Recommendation: 1:Routine Screening Bilateral Comments: Ordered By: YRIS DESAI Interpreted By: Jerardo Kemp, 10/13/2024 1:30 PM Narrative 10/13/2024 1:48 PM CDT [id number] [place] [address] EXAMINATION: Digital bilateral screening mammogram with 3-D tomosynthesis EXAM DATE/TIME: 10/13/2024 9:06 AM REASON FOR EXAM: YEARLY COMPARISON: 07/29/2023.. 07/25/2022 Technique: Digital screening mammography of both breasts was performed in addition to 3-D Tomosynthesis technique. This study was read with the assistance of a computer-aided detection system. Tissue density: There are scattered areas of fibroglandular density. Findings: There is no new focal asymmetry, dominant mass lesion, area of skin thickening, or cluster of suspicious appearing calcifications in either breast to suggest malignancy. us Yris Desai PA-C MAMMO Final Resu lt * BONE DENSITY/DEXA (07/29/2023 9:06 AM HIGH SCHOOL BAND TEACHER) Anatomical Region Laterality Modality Bone Bone Density 07/29/2023 9:03 AM HIGH SCHOOL BAND TEACHER Impressions 07/29/2023 9:14 AM HIGH SCHOOL BAND TEACHER IMPRESSION: WHO Classification: Osteoporosis. RECOMMENDATIONS: All patients should ensure an adequate intake of dietary calcium and vitamin D. The NOF recommend adults under the age of 50 need 1000 mg of calcium and 400-800 IU of vitamin D daily. Effective therapy for the prevention and treatment of osteoporosis include bisphosphonates. FOLLOW-UP: People with diagnosed cases of osteoporosis or at high risk for fracture should have regular bone mineral density test. For patients eligible for Medicare, routine testing is allowed once every 2 years. Testing frequency can be increased to one year for patients who have rapidly progressing disease, those who are receiving or discontinuing medical therapy to restore bone mass, or have additional risk factors. Ordered By: JANE VELEZ Interpreted By: Jeremi Pino, 07/29/2023 9:03 AM Narrative 07/29/2023 9:14 AM HIGH SCHOOL BAND TEACHER EXAMINATION: BONE DENSITY/DEXA INDICATIONS: Asymptomatic menopausal state COMPARISON: None TECHNIQUE: DEXA bone mineral density evaluation was performed in the AP projection over the lumbar spine and both hips utilizing standard imaging techniques. FINDINGS: The BMD measured at the AP spine L1-L4 is 0.965 g/cm? with a T-score of -0.7. The BMD measured at the left femoral neck is 0.582 g/cm? with a T-score of -2.4. The BMD measured at the left hip is 0.845 g/cm? with a T-score of -0.8. The BMD measured at the right femoral neck is 0.542 g/cm? with a T-score of - 2.8. The BMD measured at the right hip is 0.811 g/cm? with a T-score of -1.1. FRAX 10-year fracture risk: N/A: Right femoral neck T score is below -2.5. Procedure Note Jeremi Pino MD - 07/29/2023 EXAMINATION: BONE DENSITY/DEXA INDICATIONS: Asymptomatic menopausal state COMPARISON: None TECHNIQUE: DEXA bone mineral density evaluation was performed in the APprojection over the lumbar spine and both hips utilizing standard imagingtechniques. FINDINGS: The BMD measured at the AP spine L1-L4 is 0.965 g/cm? with a T-score of-0.7. The BMD measured at the left femoral neck is 0.582 g/cm? with a T-score of-2.4. The BMD measured at the left hip is 0.845 g/cm? with a T-score of -0.8. The BMD measured at the right femoral neck is 0.542 g/cm? with a T-scoreof -2.8. The BMD measured at the right hip is 0.811 g/cm? with a T-score of -1.1. FRAX 10-year fracture risk: N/A: Right femoral neck T score is below -2.5. IMPRESSION: WHO Classification: Osteoporosis. RECOMMENDATIONS: All patients should ensure an adequate intake of dietary calcium andvitamin D. The NOF recommend adults under the age of 50 need 1000 mg ofcalcium and 400-800 IU of vitamin D daily. Effective therapy for theprevention and treatment of osteoporosis include bisphosphonates. FOLLOW-UP: People with diagnosed cases of osteoporosis or at high risk for fractureshould have regular bone mineral density test. For patients eligible forMedicare, routine testing is allowed once every 2 years. Testing frequencycan be increased to one year for patients who have rapidly progressingdisease, those who are receiving or discontinuing medical therapy torestore bone mass, or have additional risk factors. Ordered By: JANE VELEZ Interpreted By: Jeremi Pino, 07/29/2023 9:03 AM Jane Velez CN DEXA Final Result from Last 3 Months or Most Recently Relevant to Health Maintenance Insurance [employer] MEDICARE Care Teams Bull Ladle Tender Relationship Specialty Start Date End Date Yris Desai PA-C [address] [place] [address] [address] [place] [address] PCP - General PHYSICIAN PSYCHOLOGICAL TESTS SALES AGENT 12/10/23 Abdi Mcnally MD [address] [place] [address] CARDIOVASCULAR DISEASE 12/10/23
--- OUTSIDE RECORDS SUMMARY | 2025-03-25 16:07 | XMS_ITS | Encounter Summary ---
Author Organization [facility] Address [address] [facility] [place] [address] Care Team Providers Care Assistant Food Service Director Name Role Phone Deonte Glez MD Primary Care Provider [phone] Encounter Details Date Type Department Care Team (Late st Contact Info) Description 10/08/2018 Lab Requisition [facility] Care DermPath Lab [address] [facility], [facility] [place] [address] Kenisha Carballo MD [address] [facility] 3 [place] [address] Social History Tobacco Use Types Packs/Day Years Used Date Smoking Tobacco: Never Smokeless Tobacco: Never Alcohol Use Standard Drinks/Week Comments Yes 0 (1 standard drink = 0.6 oz pur e alcohol) Comments Unknown Sex and Gender Information Value Date Recorded Sex Assigned at Female 12/18/2022 9:34 AM CDT 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 Gender Identity Female 12/18/2022 9:34 AM CDT Sexual Orientation Straight 12/18/2022 9: 34 AM CDT documented as of this encounter Plan of Treatment Not on file documented as of this encounter Procedures Procedure Name Priority Date/Time Associated Diagnosis Comments DERMATOPATHOLOGY Routine 10/07/2018 12:0 0 AM CDT documented in this encounter Results * DERMATOPATHOLOGY (10/07/2018 12:00 AM CDT) Case Report Dermatopathology Report Case: [id number] Authorizing Provider: Kenisha Carballo MD Collected: 10/07/2018 12:00 AM Pathologist: Lencho Doan MD Received: 10/08/2018 11:32 AM Specimen: Skin, right neck 2:28 PM CDT DERMATOPATHOLOGY LABORATORY Final Diagnosis Specimen A. SKIN, right neck: BASAL CELL CARCINOMA, NODULAR TYPE (C44.41) PRESENT AT MARGIN 2:28 PM CDT DERMATOPATHOLOGY LABORATORY at 1427 CDT Clinical History R/O BCC, growing, non-healing. 2:28 PM CDT DERMATOPATHOLOGY LABORATORY Gross Description Specimen A: Received is one formalin filled container labeled with the patient's name and designated right neck. The specimen consists of a shave measuring [id number]. Jar 0. 2:28 PM CDT DERMATOPATHOLOGY LABORATORY Microscopic Description Specimen A. SKIN, right neck: Within the dermis there are aggregates of basaloid cells with a high nuclear to cytoplasmic ratio and peripheral palisading. This lesion is present at the margin of the specimen. 2:28 PM CDT DERMATOPATHOLOGY LABORATORY Disclaimer An external and internal positive and negative controls are appropriate for the histochemical, immunohistochemical and immunofluorescence stain(s) in this case (if any), except where stated explicitly. The performance characteristics of the stain(s) cited in this report were developed and its performance characteristic determined by the Dermatopathology Laboratory at [facility], directed by Dr. Aureliano Doan. These tests need not be, and therefore are not, approved by the [place] Food and Drug Administration. The tests are used for clinical purposes. Billing Codes Specimen Charges Stain Charges 18076 1 2:28 PM CDT DERMATOPATHOLOGY LABORATORY Embedded Images 2:28 PM CDT DERMATOPATHOLOGY LABORATORY Pathology/Cytolog y TISSUE SPECIMEN FROM SKIN / Unknown 10/07/2018 10/08/2018 11:32 AM CDT us Kenisha Carballo MD LAB - PATHOLOGY/CYTOLOGY OR DERABLES Final Result DERMATOPATHOLOGY LABORATORY [facility] - Department of Dermatology [facility], 5th Floor Lab [address] [phone] documented in this encounter Visit Diagnoses Not on filedocumented in this encounter Additional Health Concerns Infection Onset Date Last Indicated Resolved Time COVID-19 Under Investigation 11/14/2019 11/13/2019 11/14/2019 10:22 PM CDT documented as of this encounter Care Teams Assistant Food Service Director Relationship Specialty Start Date End Date Deonte Glez MD [address] [place] [address] PCP - General 04/17/18 documented as of this encounter
--- OUTSIDE RECORDS SUMMARY | 2025-03-25 16:07 | XMS_ITS | Encounter Summary ---
Author Organization [facility] Address [address] [place] [address] Care Team Providers Care Water Hauler Name Role Phone Deonte Glez MD Primary Care Provider [phone] Encounter Details Date Type Department Care Team (Late st Contact Info) Description 03/18/2024 Lab Requisition [facility] - DermPath Lab [address] [facility], [place] [address] Roseline Warren DO [address] [facility] 3 [place] [address] Social History Tobacco Use Types Packs/Day Years Used Date Smoking Tobacco: Never Smokeless Tobacco: Never Alcohol Use Standard Drinks/Week Comments Yes 0 (1 standard drink = 0.6 oz pur e alcohol) Comments Unknown Sex and Gender Information Value Date Recorded Sex Assigned at Female 12/18/2022 9:34 AM CDT Legal Sex Female 6:22 PM MANAGER RESORT Gender Identity Female 12/18/2022 9:34 AM CDT Sexual Orientation Straight 12/18/2022 9: 34 AM CDT documented as of this encounter Plan of Treatment Not on file documented as of this encounter Procedures Procedure Name Priority Date/Time Associated Diagnosis Comments DERMATOPATHOLOGY Routine 03/18/2024 3:45 PM CDT documented in this encounter Results * DERMATOPATHOLOGY (03/18/2024 3:45 PM CDT) Case Report Dermatopathology Report Case: [id number] Authorizing Provider: Roseline Warren DO Collected: 03/18/2024 03:45 PM Ordering Location: [facility] - Received: 03/19/2024 12:04 PM DermPath Lab Pathologist: Elise Irby MD Specimen: Skin, right med calf superior 12:59 PM CDT DERMATOPATHOLOGY LABORATORY Final Diagnosis Specimen A. SKIN, right med calf superior: DERMAL SCAR RESIDUAL SQUAMOUS CELL CARCINOMA NOT IDENTIFIED (L90.5) 12:59 PM CDT DERMATOPATHOLOGY LABORATORY at 1258 CDT Clinical History Bx Proven SCCIS 12:59 PM CDT DERMATOPATHOLOGY LABORATORY Gross Description Specimen A: Received is one formalin filled container labeled with the patient's name and designated right med calf superior. The specimen consists of a non-oriented ellipse of skin measuring 15a91a0 mm. The epidermal surface is unremarkable. The margin is inked green. The 12 o'clock and 6 o'clock tips are submitted in cassette 1. The remainder of the ellipse is serially sectioned and submitted in cassette 2-3. Jar 0. 12:59 PM CDT DERMATOPATHOLOGY LABORATORY Microscopic Description Specimen A. SKIN, right med calf superior: There are fibroblasts and collagen bundles oriented parallel to the skin surface. There are elongated blood vessels, some of which are oriented perpendicular to the skin surface. No residual squamous cell carcinoma is identified. 12:59 PM CDT DERMATOPATHOLOGY LABORATORY Disclaimer An external and internal positive and negative controls are appropriate for the histochemical, immunohistochemical and immunofluorescence stain(s) in this case (if any), except where stated explicitly. The performance characteristics of the stain(s) cited in this report were developed and its performance characteristic determined by the Dermatopathology Laboratory at [facility], directed by Dr. Aureliano Doan. These tests need not be, and therefore are not, approved by the [place] Food and Drug Administration. The tests are used for clinical purposes. Billing Codes Specimen Charges Stain Charges 49704 1 12:59 PM CDT DERMATOPATHOLOGY LABORATORY Embedded Images 12:59 PM CDT DERMATOPATHOLOGY LABORATORY Pathology/Cytolo gy TISSUE SPECIMEN FROM SKIN / Unknown 03/18/2024 3:45 PM CDT 03/19/2024 12:04 PM CDT us Roseline Warren DO LAB - PATHOLOGY/CYTOLOGY ORDERABLES Final Result DERMATOPATHOLOGY LABORATORY [facility] - Department of Dermatology [address], [address] [phone] documented in this encounter Visit Diagnoses Not on filedocumented in this encounter Care Teams Water Hauler Relationship Specialty Start Date End Date Deonte Glez MD [address] [place] [address] PCP - General 04/17/18 documented as of this encounter
--- OUTSIDE RECORDS SUMMARY | 2025-03-25 16:07 | XMS_ITS | Encounter Summary ---
Author Organization [facility] Address [address] [place] [address] Care Team Providers Care Retail Service Technician Name Role Phone Deonte Glez MD Primary Care Provider [phone] Encounter Details Date Type Department Care Team (Late st Contact Info) Description 03/25/2018 Lab Requisition [facility] Care DermPath Lab [address] [facility], [place] [address] Kenisha Carballo MD [address] [facility] 3 [place] [address] Social History Tobacco Use Types Packs/Day Years Used Date Smoking Tobacco: Never Assessed Comments Unknown Sex and Gender Information Value Date Recorded Sex Assigned at Female 12/18/2022 9:34 AM CDT Legal Sex Female 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 Gender Identity Female 12/18/2022 9:34 AM CDT Sexual Orientation Straight 12/18/2022 9: 34 AM CDT documented as of this encounter Plan of Treatment Not on file documented as of this encounter Procedures Procedure Name Priority Date/Time Associated Diagnosis Comments DERMATOPATH TECHNICAL REPORT Routine 03/24/2018 12:00 AM CDT documented in this encounter Results * DERMATOPATH TECHNICAL REPORT (03/24/2018 12:00 AM CDT) Case Report Dermatopathology Report Case: [id number] Authorizing Provider: Kenisha Carballo MD Collected: 03/24/2018 12:00 AM Pathologist: Lencho Doan MD Received: 03/25/2018 07:15 AM Specimen: Skin, right ala 12:12 PM CDT DERMATOPATHOLOGY LABORATORY Clinical History BCC. Non-healing. Check margins. 12:12 PM CDT DERMATOPATHOLOGY LABORATORY Gross Description Specimen A: Received is one formalin filled container labeled with the patient's name and designated right ala. The specimen consists of a shave measuring [id number]. The margin is inked green. Jar 0. [facility] Dermatopathology Laboratory performed the technical component only. 12:12 PM CDT DERMATOPATHOLOGY LABORATORY Embedded Images 12:12 PM CDT DERMATOPATHOLOGY LABORATORY DISCLAIMER An external and internal positive and negative controls are appropriate for the histochemical, immunohistochemical and immunofluorescence stain(s) in this case (if any), except where stated explicitly. The performance characteristics of the stain(s) cited in this report were developed and its performance characteristic determined by the Dermatopathology Laboratory at [facility]. These tests need not be, and therefore are not, approved by the [place] Food and Drug Administration. The tests are used for clinical purposes. 12:12 PM CDT DERMATOPATHOLOGY LABORATORY at 1212 CDT Pathology/Cytolog y TISSUE SPECIMEN FROM SKIN / Unknown 03/24/2018 03/25/2018 7:15 AM CDT Kenisha Carballo MD LAB - PATHOLOGY/CYTOLOGY OR DERABLES Final Result DERMATOPATHOLOGY LABORATORY [facility] - Department of Dermatology [address] [place] [address], 5[address] Floor Lab [address] [phone] documented in this encounter Visit Diagnoses Not on filedocumented in this encounter Additional Health Concerns Infection Onset Date Last Indicated Resolved Time COVID-19 Under Investigation 11/14/2019 11/13/2019 11/14/2019 10:22 PM CDT documented as of this encounter Care Teams Retail Service Technician Relationship Specialty Start Date End Date Deonte Glez MD [address] [place] [address] PCP - General 11/8/18 documented as of this encounter
--- OUTSIDE RECORDS SUMMARY | 2025-03-25 16:07 | XMS_ITS | Encounter Summary ---
Author Organization [facility] Address [address] [facility] [place] [address] Care Team Providers Care Order Entry Administrator Name Role Phone Deonte Glez MD Primary Care Provider [phone] Encounter Details Date Type Department Care Team (Late st Contact Info) Description 06/13/2023 Lab Requisition [facility] - DermPath Lab [address] [facility], [place] [address] Roseline Warren DO [address] [facility] 3 [place] [address] Social History Tobacco Use Types Packs/Day Years Used Date Smoking Tobacco: Never Smokeless Tobacco: Never Alcohol Use Standard Drinks/Week Comments Yes 0 (1 standard drink = 0.6 oz pur e alcohol) Comments Unknown Sex and Gender Information Value Date Recorded Sex Assigned at Female 12/18/2022 9:34 AM CDT Legal Sex Female 6:22 PM NATIONAL ACCOUNTS SALES Gender Identity Female 12/18/2022 9:34 AM CDT Sexual Orientation Straight 12/18/2022 9: 34 AM CDT documented as of this encounter Plan of Treatment Not on file documented as of this encounter Procedures Procedure Name Priority Date/Time Associated Diagnosis Comments DERMATOPATHOLOGY Routine 06/13/2023 9:31 AM [employer]ATIONAL [employer]OUNTS SALES documented in this encounter Results * DERMATOPATHOLOGY (06/13/2023 9:31 AM NATIONAL ACCOUNTS SALES) Case Report Dermatopathology Report Case: [id number] Authorizing Provider: Roseline Warren DO Collected: 06/13/2023 09:31 AM Ordering Location: [facility] DermPath Lab Received: 06/14/2023 01:42 PM Pathologist: Elise Irby MD Specimen: Skin, right palm 2:[address] [facility] DERMATOPATHOLOGY LABORATORY Final Diagnosis Specimen A. SKIN, right palm: SUPERFICIAL PORTION OF EPIDERMIS (L98.9) (see microscopic description and comment) 2:[address] [facility] DERMATOPATHOLOGY LABORATORY at 1448 NATIONAL ACCOUNTS SALES Clinical History Clavus vs. FBG 2:[address] [facility] DERMATOPATHOLOGY LABORATORY Gross Description Specimen A: Received is one formalin filled container labeled with the patient's name and designated right palm. The specimen consists of two (2) pieces of a shave biopsy measuring 5x3x2, 6x3x1 mm. Jar 0. 2:[address] [facility] DERMATOPATHOLOGY LABORATORY Microscopic Description Specimen A. SKIN, right palm: The specimen samples only stratum corneum with focal parakeratosis and upper portions of cellular epidermis. Lower epidermis and dermis are not available for evaluation. Birefringent material is not observed when the specimen is examined under polarized light. Additional deeper sections were obtained and reviewed. COMMENT: Given the superficial nature of the biopsy specimen, a deeper process cannot be excluded. 2:[address] [facility] DERMATOPATHOLOGY LABORATORY Disclaimer An external and internal positive and negative controls are appropriate for the histochemical, immunohistochemical and immunofluorescence stain(s) in this case (if any), except where stated explicitly. The performance characteristics of the stain(s) cited in this report were developed and its performance characteristic determined by the Dermatopathology Laboratory at [facility], directed by Dr. Aureliano Doan. These tests need not be, and therefore are not, approved by the [place] Food and Drug Administration. The tests are used for clinical purposes. Billing Codes Specimen Charges Stain Charges 56029 1 2:[address] [facility] DERMATOPATHOLOGY LABORATORY Embedded Images 2:[address] [facility] DERMATOPATHOLOGY LABORATORY Pathology/Cytolo gy TISSUE SPECIMEN FROM SKIN / Unknown 06/13/2023 9:31 AM [employer] 06/14/2023 1:[address] [facility] Roseline Warren DO LAB - PATHOLOGY/CYTOLOGY ORDERABLES Final Result DERMATOPATHOLOGY LABORATORY [facility] - Department of Dermatology [address], [address] [phone] documented in this encounter Visit Diagnoses Not on filedocumented in this encounter Care Teams Order Entry Administrator Relationship Specialty Start Date End Date Deonte Glez MD [address] [place] [id number] PCP - General 04/17/18 documented as of this encounter
--- OUTSIDE RECORDS SUMMARY | 2025-03-25 16:07 | XMS_ITS | Encounter Summary ---
Author Organization [facility] Address [address] [facility] [place] [address] Care Team Providers Care Paper Making Machine Operator Name Role Phone Deonte Glez MD Primary Care Provider [phone] Encounter Details Date Type Department Care Team (Late st Contact Info) Description 10/22/2018 Lab Requisition [facility] Care DermPath Lab [address] [facility] [place] [address] Roseline Warren DO [address] [facility] 3 [place] [address] Social History Tobacco Use Types Packs/Day Years Used Date Smoking Tobacco: Never Smokeless Tobacco: Never Alcohol Use Standard Drinks/Week Comments Yes 0 (1 standard drink = 0.6 oz pur e alcohol) Comments Unknown Sex and Gender Information Value Date Recorded Sex Assigned at Female 12/18/2022 9:34 AM CDT 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 Gender Identity Female 12/18/2022 9:34 AM CDT Sexual Orientation Straight 12/18/2022 9: 34 AM CDT documented as of this encounter Plan of Treatment Not on file documented as of this encounter Procedures Procedure Name Priority Date/Time Associated Diagnosis Comments DERMATOPATHOLOGY Routine 10/21/2018 12:0 0 AM CDT documented in this encounter Results * DERMATOPATHOLOGY (10/21/2018 12:00 AM CDT) Case Report Dermatopathology Report Case: [id number] Authorizing Provider: Roseline Warren DO Collected: 10/21/2018 12:00 AM Pathologist: Lencho Doan MD Received: 10/22/2018 06:37 AM Specimen: Skin, right neck 4:22 PM T DERMATOPATHOLOGY LABORATORY Final Diagnosis Specimen A. SKIN, right neck: DERMAL SCAR RESIDUAL BASAL CELL CARCINOMA NOT IDENTIFIED (L90.5) 4:22 PM T DERMATOPATHOLOGY LABORATORY at 1622 CDT Clinical History Bx proven BCC nodular type with positive margin. Previous Bx: [id number]. 4:22 PM T DERMATOPATHOLOGY LABORATORY Gross Description Specimen A: Received is one formalin filled container labeled with the patient's name and designated right neck.The specimen consists of an ellipse measuring [id number] and is oriented with the notch at the 12 o'clock position, not labeled on the requisition. The epidermal surface consists of a centrally located 3x3mm previous biopsy site. The 12 to 6 o'clock margin is inked green. The 6 o'clock to 12 o'clock margin is inked black. The 12 o'clock tip is submitted in cassette 1. The 6 o'clock tip is submitted in cassette 2. The remainder of the ellipse is serially sectioned and submitted in cassettes 3-4. Jar 0. 4:22 PM [facility] DERMATOPATHOLOGY LABORATORY Microscopic Description Specimen A. SKIN, right neck: There are fibroblasts and collagen bundles oriented parallel to the skin surface. There are elongated blood vessels, some of which are oriented perpendicular to the skin surface. No basal cell carcinoma is identified. 4:22 PM T DERMATOPATHOLOGY LABORATORY Disclaimer An external and internal positive and negative controls are appropriate for the histochemical, immunohistochemical and immunofluorescence stain(s) in this case (if any), except where stated explicitly. The performance characteristics of the stain(s) cited in this report were developed and its performance characteristic determined by the Dermatopathology Laboratory at [facility], directed by Dr. Aureliano Doan. These tests need not be, and therefore are not, approved by the [place] Food and Drug Administration. The tests are used for clinical purposes. Billing Codes Specimen Charges Stain Charges 76512 1 4:22 PM T DERMATOPATHOLOGY LABORATORY Embedded Images 05/16/201 9 4:22 PM CDT DERMATOPATHOLOGY LABORATORY Pathology/Cytolog y TISSUE SPECIMEN FROM SKIN / Unknown 10/21/2018 10/22/2018 6:37 AM CDT us Roseline Warren DO LAB - PATHOLOGY/CYTOLOGY ORDERABLES Final Result DERMATOPATHOLOGY LABORATORY [facility] - Department of Dermatology [address] [place] [address] 5th Floor Lab [address] [phone] documented in this encounter Visit Diagnoses Not on filedocumented in this encounter Additional Health Concerns Infection Onset Date Last Indicated Resolved Time COVID-19 Under Investigation 11/14/2019 11/13/2019 11/14/2019 10:22 PM CDT documented as of this encounter Care Teams Paper Making Machine Operator Relationship Specialty Start Date End Date Deonte Glez MD [address] [place] [phone] PCP - General 04/17/18 documented as of this encounter
--- OUTSIDE RECORDS SUMMARY | 2025-03-25 16:07 | XMS_ITS | Encounter Summary ---
Author Organization [facility] Address [address] [facility] [place] [address] Care Team Providers Care Plug Wirer Name Role Phone Deonte Glez MD Primary Care Provider [phone] Encounter Details Date Type Department Care Team (Late st Contact Info) Description 03/31/2019 Lab Requisition [facility] Care DermPath Lab [address] 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 Gender Identity Female 12/18/2022 9:34 AM CDT Sexual Orientation Straight 12/18/2022 9: 34 AM CDT documented as of this encounter Plan of Treatment Not on file documented as of this encounter Procedures Procedure Name Priority Date/Time Associated Diagnosis Comments DERMATOPATHOLOGY Routine 03/30/2019 12:0 0 AM CDT documented in this encounter Results * DERMATOPATHOLOGY (03/30/2019 12:00 AM CDT) Case Report Dermatopathology Report Case: [id number] Authorizing Provider: Roseline Warren DO Collected: 03/30/2019 12:00 AM Ordering Location: [facility] Received: 03/31/2019 12:21 PM Pathologist: Mary Barrios MD Specimens: A) - Skin, right medial lower extremity B) - Skin, left medial lower extremity C) - Skin, left calf 12:28 PM [facility] DERMATOPATHOLOGY LABORATORY Final Diagnosis Specimen A. SKIN, right medial lower extremity: LICHEN PLANUS-LIKE KERATOSIS (BENIGN LICHENOID KERATOSIS) (L82.1) Specimen B. 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 SKIN, left calf: PIGMENTED PURPURIC DERMATOSIS, CONSISTENT WITH (L81.7) STASIS CHANGES (L30.8) 9 12:28 PM [facility] DERMATOPATHOLOGY LABORATORY at 1228 CDT Clinical History A-B: LPLK R/O BCC. 9 12:28 PM [facility] DERMATOPATHOLOGY LABORATORY Gross Description Specimen A: Received is one formalin filled container labeled with the patient's name and designated right medial lower extremity. The specimen consists of a shave measuring [id number]. Jar 0. Specimen B: Received is one formalin filled container labeled with the patient's name and designated left medial lower extremity. The specimen consists of a shave measuring 9k2c1kw. Jar 0. Specimen C: Received is one formalin filled container labeled with the patient's name and designated left calf. The specimen consists of a shave (2 pieces) measuring 8d7d9wh & 9j2l5ty. Jar 0. 9 12:28 PM [facility] DERMATOPATHOLOGY LABORATORY Microscopic Description Specimen A. SKIN, right medial lower extremity: The epidermis is mildly acanthotic. There is a lichenoid infiltrate with vacuolar changes of basilar keratinocytes and scattered necrotic keratinocytes. Specimen B. SKIN, left medial lower extremity: The epidermis shows parakeratosis, full thickness disorderly maturation of keratinocytes, mitoses at different levels, and dyskeratotic cells. Specimen C. SKIN, left calf: Sections show a lymphocytic infiltrate with extravasated erythrocytes in the papillary dermis. There is focal spongiosis. The dermis shows a sparse, perivascular lymphocytic infiltrate surrounding dilated, thick-walled vessels, which are increased in number. 9 12:28 PM CDT DERMATOPATHOLOGY LABORATORY Disclaimer An external and internal positive and negative controls are appropriate for the histochemical, immunohistochemical and immunofluorescence stain(s) in this case (if any), except where stated explicitly. The performance characteristics of the stain(s) cited in this report were developed and its performance characteristic determined by the Dermatopathology Laboratory at [facility], directed by Dr. Aureliano Doan. These tests need not be, and therefore are not, approved by the [place] Food and Drug Administration. The tests are used for clinical purposes. Billing Codes Specimen Charges Stain Charges 71589 51006 55280 1 1 1 9 12:28 PM CDT DERMATOPATHOLOGY LABORATORY Embedded Images 12:28 PM CDT DERMATOPATHOLOGY LABORATORY Pathology/Cytology TISSUE SPECIMEN FROM SKIN / Unknown 03/30/2019 03/31/2019 12:21 PM CDT Miscellaneous samples (specimen) TISSUE SPECIMEN FROM SKIN / Unknown 03/30/2019 03/31/2019 12:21 PM CDT Miscellaneous samples (specimen) TISSUE SPECIMEN FROM SKIN / Unknown 03/30/2019 03/31/2019 12:21 PM CDT us Roseline Warren DO LAB - PATHOLOGY/CYTOLOGY ORDERABLES Final Result DERMATOPATHOLOGY LABORATORY [facility] - Department of Dermatology [address] [place] [address] 5th Floor Lab [address] [phone] documented in this encounter Visit Diagnoses Not on filedocumented in this encounter Additional Health Concerns Infection Onset Date Last Indicated Resolved Time COVID-19 Under Investigation 11/14/2019 11/13/2019 11/14/2019 10:22 PM CDT documented as of this encounter Care Teams Plug Wirer Relationship Specialty Start Date End Date Deonte Glez MD [address] [place] [phone] PCP - General 04/17/18 documented as of this encounter
--- OUTSIDE RECORDS SUMMARY | 2025-03-25 16:08 | XMS_ITS | Encounter Summary ---
Author Organization [facility] Address [address] [facility] [place] [address] Care Team Providers Care Clerical Secretary Name Role Phone Deonte Glez MD Primary Care Provider Encounter Details Date Type Department Care Team (Late st Contact Info) Description 01/05/2025 Lab Requisition [facility] - DermPath Lab [address] 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 Gender Identity Female 12/18/2022 9:34 AM CDT Sexual Orientation Straight 12/18/2022 9: 34 AM CDT documented as of this encounter Plan of Treatment Not on file documented as of this encounter Procedures Procedure Name Priority Date/Time Associated Diagnosis Comments DERMATOPATHOLOGY Routine 01/05/2025 8:15 AM CDT documented in this encounter Results * DERMATOPATHOLOGY (01/05/2025 8:15 AM CDT) Case Report Dermatopathology Report Case: [id number] Authorizing Provider: Roseline Warren DO Collected: 01/05/2025 08:15 AM Ordering Location: [facility] - Received: 01/05/2025 12:17 PM DermPath Lab Pathologist: Kylee Irby MD Specimens: A) - Skin, left medial cheek B) - Skin, right thigh C) - Skin, right med LE 5:03 PM T DERMATOPATHOLOGY LABORATORY Final Diagnosis Specimen A. SKIN, left medial cheek: BASAL CELL CARCINOMA, NODULAR TYPE (C44.319) Specimen B. SKIN, right thigh: SUBACUTE SPONGIOTIC DERMATITIS (L30.8) SUPERFICIAL PERIVASCULAR LYMPHOCYTIC INFILTRATE WITH EOSINOPHILS (L27.0) (see microscopic description and comment) Specimen C. SKIN, right med LE: SQUAMOUS CELL CARCINOMA, WELL DIFFERENTIATED (C44.722) 5:03 PM CDT DERMATOPATHOLOGY LABORATORY at 1703 CDT Clinical History A-C: R/O NMSC 5:03 PM CDT DERMATOPATHOLOGY LABORATORY Gross Description Specimen A: Received is one formalin filled container labeled with the patient's name and designated left medial cheek. The specimen consists of a shave biopsy measuring 3x2x1 mm. Jar 0. Specimen B: Received is one formalin filled container labeled with the patient's name and designated right thigh. The specimen consists of a shave biopsy measuring 5x5x1 mm. Jar 0. Specimen C: Received is one formalin filled container labeled with the patient's name and designated right med LE. The specimen consists of a shave biopsy measuring 7x6x1 mm. Jar 0. 5:03 PM CDT DERMATOPATHOLOGY LABORATORY Microscopic Description Specimen A. SKIN, left medial cheek: Within the dermis there are aggregates of basaloid cells with a high nuclear to cytoplasmic ratio and peripheral palisading. Specimen B. SKIN, right thigh: There is spongiosis of the epidermis with subjacent papillary dermal edema. In the dermis there is a perivascular and interstitial infiltrate including lymphocytes and eosinophils. Grocott's methenamine silver (GMS) stain fails to highlight fungal elements in the available sections. Additional deeper sections were obtained and reviewed. COMMENT: These findings are suggestive of a hypersensitivity reaction such as may be seen secondary to a drug or arthropod bite reaction. Clinicopathologic correlation is recommended. COMMENT: These histological findings are consistent with an eczematous dermatitis. Specimen C. SKIN, right med LE: Arising in the epidermis and extending into the dermis there are irregularly shaped aggregates of keratinocytes showing evidence of premature cornification. 5 5:03 PM CDT DERMATOPATHOLOGY LABORATORY Disclaimer An external and internal positive and negative controls are appropriate for the histochemical, immunohistochemical and immunofluorescence stain(s) in this case (if any), except where stated explicitly. The performance characteristics of the stain(s) cited in this report were developed and its performance characteristic determined by the Dermatopathology Laboratory at [facility], directed by Dr. Aureliano Doan. These tests need not be, and therefore are not, approved by the [place] Food and Drug Administration. The tests are used for clinical purposes. Billing Codes Specimen Charges Stain Charges 97657 91112 27695 1 1 1 04352 1 5 5:03 PM CDT DERMATOPATHOLOGY LABORATORY Embedded Images 5 5:03 PM CDT DERMATOPATHOLOGY LABORATORY Pathology/Cytology TISSUE SPECIMEN FROM SKIN / Unknown 01/05/2025 8:15 AM CDT 01/05/2025 12:17 PM CDT Miscellaneous samples (specimen) TISSUE SPECIMEN FROM SKIN / Unknown 01/05/2025 8:15 AM CDT 01/05/2025 12:17 PM CDT Miscellaneous samples (specimen) TISSUE SPECIMEN FROM SKIN / Unknown 01/05/2025 8:15 AM CDT 01/05/2025 12:17 PM CDT Roseline Warren DO LAB - PATHOLOGY/CYTOLOGY ORDERABLES Final Result DERMATOPATHOLOGY LABORATORY [facility] - Department of Dermatology [facility] Medicine [address] [place] [address], [address] [place] [address], [facility] [phone] documented in this encounter Visit Diagnoses Not on filedocumented in this encounter Care Teams Clerical Secretary Relationship Specialty Start Date End Date Deonte Glez MD [address] [facility] [address] [place] [id number] PCP - General 04/17/18 documented as of this encounter
--- OUTSIDE RECORDS SUMMARY | 2025-03-25 16:08 | XMS_ITS | Clinical Summary ---
Author Organization [facility] Address [address] [place] [address] Care Team Providers Care Pump Servicer Helper Name Role Phone Deonte Glez MD Primary Care Provider [phone] Source Comments [facility],non-owned Affiliates and Associated Physician Practices is amultiple site organization consisting of ambulatory clinics and hospital sitesin [place], [place], [place] and [place]. This disclosure is being madepursuant to the Care Everywhere program and may not contain all information available regarding this patient. Last updated 18.[facility] Allergies No known active allergies Medications * Be aware that medications may not be up to date on this document. Alwaysverify current medications with the patient. quinapril (ACCUPRIL) 10 MG tablet Take 10 mg by mouth once daily Active BABY ASPIRIN PO Take 81 mg by mouth once daily Active FOLIC ACID PO Take 400 mg by mouth once daily Active Cetirizine HCl (ZYRTEC PO) Take 5 mg by mouth once daily 1/2 tab daily Active Cholecalciferol (VITAMIN D-3 PO) Take 2,000 Units by mouth once daily Active [place]-3 Fatty Acids (FISH OIL PO) Take 1,400 mg by mouth once daily Active simvastatin (ZOCOR) 20 MG tablet Take 20 mg by mouth once daily Active ezetimibe (ZETIA) 10 MG tablet Take 10 mg by mouth once daily Active Montelukast Sodium (SINGULAIR PO) Take 5 mg by mouth once daily Active Cetirizine-Pseud oephedrine (ZYRTEC-D PO) Take 1 tablet by mouth once daily Active Estradiol (ESTRADERM TD) Apply 0.025 mg to skin every 7 days Active Active Problems No known active problems Encounters Date Type Department Care Team Description 01/05/2025 Lab Requisition [facility] - DermPath Lab [address] [place] [address] Roseline Warren DO from Last 3 Months Social History Tobacco Use Types Packs/Day Years Used Date Smoking Tobacco: Never Smokeless Tobacco: Never Alcohol Use Standard Drinks/Week Comments Yes 0 (1 standard drink = 0.6 oz pur e alcohol) Comments Unknown Sex and Gender Information Value Date Recorded Sex Assigned at Female 12/18/2022 9:34 AM CDT Legal Sex Female 6:22 PM CLOTHES MARKER Gender Identity Female 12/18/2022 9:34 AM CDT Sexual Orientation Straight 12/18/2022 9: 34 AM CDT Last Filed Vital Signs Vital Sign Reading Time Taken Comments Blood Pressure 131/94 05/30/2018 3:03 PM CLOTHES MARKER Pulse 86 05/30/2018 3:03 PM CLOTHES MARKER Temperature - - Respiratory Rate - - Oxygen Saturation 98% 05/30/2018 3:03 PM CLOTHES MARKER Inhaled Oxygen Concentration - - Weight 50.8 kg (112 lb) 05/30/2018 1:46 PM CLOTHES MARKER Height 152.4 cm (5') 05/30/2018 1:46 PM CLOTHES MARKER Body Mass Index 21.87 05/30/2018 1:46 PM CLOTHES MARKER Plan of Treatment Health Maintenance Due Date Last Done Comments BONE DENSITY TESTING 1960 COLOGUARD (AGES 45-75) - COL ON CA SCREENING 1958 COLON MONITORING 1958 COLONOSCOPY - COLON CA SCREENING 1958 CT COLONOGRAPHY - COLON CA SCREENING 1960 Colorectal Cancer Screening 1958 FIT - COLON CA SCREENING 1958 FLEX SIG - COLON CA SCREENING 1958 MAMMOGRAM 1958 HEPATITIS C SCREENING 11/03/1976 DTAP/TDAP/TD VACCINES (1 - Tdap) 1977 PNEUMOCOCCAL VACCINE 50+ (1 of 1 - PCV) 2008 ZOSTER VACCINE (1 of 2) 2008 DEPRESSION SCREENING 06/10/2024 MEDICARE AWV CALENDAR YEAR 2024 COVID-19 VACCINE (2023-2 5 season) 2025 INFLUENZA VACCINE (#1) 2025 Respiratory Syncytial Virus (RSV) Vaccine Pt: or over 60 yrs (1 - 1-dose 75+ series) 2033 HEPATITIS B VACCINE Aged Out No longe r eligible based on patient's age to complete this topic HIB VACCINE Aged Out No longer eligi ble based on patient's age to complete this topic HPV VACCINE Aged Out No longer eligi ble based on patient's age to complete this topic MENINGOCOCCAL (Group B) VACC INE SHARED DECISION-MAKING Aged Out No longer eligibl e based on patient's age to complete this topic MENINGOCOCCAL GROUPS A/C/Y/W VACCINE Aged Out No longer eligible b ased on patient's age to complete this topic Procedures Procedure Name Priority Date/Time Associated Diagnosis Comments DERMATOPATHOLOGY Routine 01/05/2025 8:15 AM CDT from Last 3 Months Results * DERMATOPATHOLOGY (01/05/2025 8:15 AM CDT) Case Report Dermatopathology Report Case: [id number] Authorizing Provider: Roseline Warren DO Collected: 01/05/2025 08:15 AM Ordering Location: [facility] - Received: 01/05/2025 12:17 PM DermPath Lab Pathologist: Kylee Irby MD Specimens: A) - Skin, left medial cheek B) - Skin, right thigh C) - Skin, right med LE 5:03 PM CDT DERMATOPATHOLOGY LABORATORY Final Diagnosis Specimen [...] shave biopsy measuring 7x6x1 mm. Jar 0. 5 5:03 PM [facility] DERMATOPATHOLOGY [facility]ORATORY Microscopic Description Specimen A. SKIN, [...] of keratinocytes showing evidence of premature cornification. 5:03 PM [facility] DERMATOPATHOLOGY [facility]ORATORY Disclaimer An external and internal positive and negative controls are appropriate for the histochemical, immunohistochemical and immunofluorescence stain(s) in this case (if any), except where stated explicitly. The performance characteristics of the stain(s) cited in this report were developed and its performance characteristic determined by the Dermatopathology Laboratory at [facility], directed by Dr. Aureliano Doan. These tests need not be, and therefore are not, approved by the [place] Food and Drug Administration. The tests are used for clinical purposes. Billing Codes Specimen Charges Stain Charges 53445 48151 62705 1 1 1 97679 1 5 5:03 PM [facility] DERMATOPATHOLOGY [facility]ORATORY Embedded Images 5:03 PM [facility] DERMATOPATHOLOGY [facility]ORATORY Pathology/Cytology TISSUE SPECIMEN FROM SKIN / Unknown 01/05/2025 8:15 AM CDT 01/05/2025 12:17 PM CDT Miscellaneous samples (specimen) TISSUE SPECIMEN FROM SKIN / Unknown 01/05/2025 8:15 AM CDT 01/05/2025 12:17 PM CDT Miscellaneous samples (specimen) TISSUE SPECIMEN FROM SKIN / Unknown 01/05/2025 8:15 AM CDT 01/05/2025 12:17 PM CDT us Roseline Warren DO LAB - PATHOLOGY/CYTOLOGY ORDERABLES Final Result DERMATOPATHOLOGY LABORATORY [facility] - Department of Dermatology [address] [phone] from Last 3 Months Insurance [employer] MEDICARE ADV Care Teams Pump Servicer Helper Relationship Specialty Start Date End Date Deonte Glez MD [address] [place] [id number] PCP - General 04/17/18
--- OUTSIDE RECORDS SUMMARY | 2025-03-25 16:08 | XMS_ITS | Encounter Summary ---
Author Organization [facility] Address [address] [place] [address] Care Team Providers Care Functional Tester Name Role Phone None, Provider Primary Care Provider Abdi Fernando MD Unavailable [phone] Yris Zuluaga PA-C Primary Care Provider [phone] Encounter Details Date Type Department Care Team (Late st Contact Info) Description 05/03/2020 Prep for Procedure [facility] [address] [place] [address] Erick Saeed MD [address] [address] Social History Tobacco Use Types Packs/Day Years [...] declined 05/03/2020 How often do you attend oriental orthodox or restoration serv ices? Patient declined 05/03/2020 Do you belong to any clubs o r organizations such as oriental orthodox groups, unions, fraOutboundEngine or athletic groups, or school groups? Patient [...] and heating? Not hard at all 05/03/2020 [facility] - Occupational Stress Questionnaire Answer Date Recorded [...] needed for daily living? No 05/03/2020 Comments Unknown Sex and Gender Information Value Date Recorded Sex Assigned at Not on file Legal Sex Female 7:56 PM CDT Gender Identity Female 07/19/2021 10:03 AM FOOTWEAR SALES COORDINATOR Sexual Orientation Straight 07/19/2021 10 :03 AM FOOTWEAR SALES COORDINATOR documented as of this encounter Functional Status documented as of this encounter Plan of Treatment Not on file documented as of this encounter Results * PRE-SURGICAL/PRE-PROCEDURE CORONAVIRUS (COVID 19) (05/10/2020 10:47 AM FOOTWEAR SALES COORDINATOR) CORONAVIRUS SARS COV 2 PCR (RESP) NOT DETECTED NOT DETECTED 05/11/2020 2:42 PM FOOTWEAR SALES COORDINATOR [facility] Comment: A Not Detected (negative) test result for this test means that SARS- CoV-2 RNA was not present in the specimen above the limit of detection. A negative result does not rule out the possibility of COVID-19 and should not be used as the sole basis for treatment or patient management decisions. If COVID-19 is still suspected, based on exposure history together with other clinical findings, re-testing should be considered in consultation with public health authorities. Laboratory test results should always be considered in the context of clinical observations and epidemiological data in making a final diagnosis and patient management decisions. Please review the Fact Sheets and FDA authorized labeling available for health care providers and patients using the following websites: https://www.[employer].com/home/Covid-19/HCP/NAAT/fact-sheet2 https://www.[employer]/home/Covid-19/Patients/NAAT/ fact-sheet2 This test has been authorized by the FDA under an Emergency Use Authorization (EUA) for use by authorized laboratories. Due to the current public health emergency, [facility] is receiving a high volume of samples from a wide variety of swabs and media for COVID-19 testing. In order to serve patients during this public health crisis, samples from appropriate clinical sources are being tested. Negative test results derived from specimens received in non-commercially manufactured viral collection and transport media, or in media and sample collection kits not yet authorized by FDA for COVID-19 testing should be cautiously evaluated and the patient potentially subjected to extra precautions such as additional clinical monitoring, including collection of an additional specimen. Methodology: Nucleic Acid Amplification Test (NAAT) includes RT-PCR or TMA Additional information about COVID-19 can be found at the [facility] website: www.[employer].com/Covid19. Test performed at [facility] [place] [address] [place] [address] Director: MARTIR SR DO,MPH FIRST TEST NO 05/10/2020 10:44 AM [facility] EMPLOYED IN HEALTHCARE NO 05/10/2020 10:44 AM [facility] SYMPTOMATIC DEFINED BY CDC NO 05/10/2020 10:44 AM [facility] DATE OF SYMPTOM ONSET UNKNOWN 05/10/2020 10:56 AM [facility] HOSPITALIZATION STATUS NO 05/10/2020 10:44 AM [facility] PATIENT IN ICU NO 05/10/2020 10:44 AM [facility] RESIDENT OF [facility] NO 05/10/2020 10:44 AM [facility] UNKNOWN 05/10/2020 10:56 AM [facility] PATIENT'S RACE WHITE OR 05/10/2020 10:44 AM [facility] ETHNICITY NONHISPANIC 05/10/2020 10:44 AM [facility] SOURCE (QST) NASOPHARYNGEAL SWAB 05/10/2020 10:44 AM [facility] NASOPHARYNGEAL SWAB / Unknown 05/10/2020 10:47 AM FOOTWEAR SALES COORDINATOR us W Calin Saeed MD MICROBIOLOGY - GENERAL ORDERABLES Final Result [facility] [address] [place] [address], [place] [phone] [facility] [address] [place] [address], documented in this encounter Visit Diagnoses Diagnosis Pre-op testing- Primary Preoperative examination, unspecified documented in this encounter Additional Health Concerns Infection Onset Date Last Indicated Resolved Time COVID-19 Rule Out 05/10/2020 05/10/2020 05/11/2020 2:42 PM FOOTWEAR SALES COORDINATOR documented as of this encounter Care Teams Functional Tester Relationship Specialty Start Date End Date None, Provider, PCP - General 05/29/19 12/09/23 Yris Zuluaga PACarlosC [facility] [place] [address] PCP - General PHYSICIAN SENIOR COMMISSARY AGENT 12/10/23 Abdi Mcnally MD [address] [place] [address] CARDIOVASCULAR DISEASE 12/10/23 documented as of this encounter
--- OUTSIDE RECORDS SUMMARY | 2025-03-25 16:08 | XMS_ITS | Encounter Summary ---
Author Organization [facility] Address [address] [place] [address] Care Team Providers Care Railroad Crane Operator Name Role Phone None, Provider Primary Care Provider Abdi Fernando MD Unavailable [phone] Yris Zuluaga PA-C Primary Care Provider [phone] Encounter Details Date Type Department Care Team (Late st Contact Info) Description 04/26/2011 Abstract [facility] CONVERSION [address] [place] [address] , Generic Conversion, Social History Tobacco Use Types Packs/Day Years Used Date Smoking Tobacco: Never Assessed Comments Unknown Sex and Gender Information Value Date Recorded Sex Assigned at Not on file Legal Sex Female 7:56 PM CDT Gender Identity Female 07/19/2021 10:03 AM GAMES DEALER Sexual Orientation Straight 07/19/2021 10 :03 AM GAMES DEALER documented as of this encounter Plan of Treatment Not on file documented as of this encounter Visit Diagnoses Not on filedocumented in this encounter Additional Health Concerns Infection Onset Date Last Indicated Resolved Time COVID-19 Rule Out 05/10/2020 05/10/2020 05/11/2020 2:42 PM GAMES DEALER documented as of this encounter Care Teams Railroad Crane Operator Relationship Specialty Start Date End Date None, Provider, PCP - General 05/29/19 12/09/23 Yris Zuluaga PA-C [address] [place], [place] [id number] PCP - General PHYSICIAN MAINTENANCE PORTER 12/10/23 Abdi Mcnally MD [address] [place] [address] CARDIOVASCULAR DISEASE 12/10/23 documented as of this encounter
[2025-03-25 19:14] LABS: Iron 138 ug/dL (37-170)
[2025-03-25 20:05] LABS: Percent Iron Saturation 34 % (20-50)
[2025-03-25 22:23] LABS: Hepatitis B Surface Antigen Negative (Negative)
[2025-03-25 22:28] LABS: HAV RESULT Negative (Negative); Hepatitis B Core IgM Result Negative (Negative)
[2025-03-26 07:10] LABS: GGT 14 IU/L (0-60)
[2025-03-26 18:08] LABS: ANA by IFA Rfx Titer/Pattern Negative (.)
== END 2025-03-25 14:01 | disposition home or self-care (01) ==
PROVIDERS: PCP Physician Assistant Medical; Visit Provider Nurse Practitioner Family
DX: K76.0 Fatty (change of) liver, not elsewhere classified (principal); R10.12 Left upper quadrant pain
CPT/HCPCS: 36415; 80074; 82103; 82104; 82390; 82977; 83540; 83550; 86015; 86038; 86381